=== PATIENT | male | born 1965 | race Caucasian/White ===

== ENCOUNTER → 2016-07-31 | Outpatient (CLI) | payer BC ==
[~2016-07-31] MED LIST: ASP81CT PO; CHL25T PO; CITA20TA4 PO; FLC1T PO; LEVE500T99 PO; OLAN2.5T19 PO; OSLT25B PO; PANTOPRAZOLE; PHN100C PO; PNT40TEC PO; SCR1T1 PO
--- OUTSIDE RECORDS SUMMARY | 2016-07-31 15:08 | XMS REPORT | Continuity of Care Document ---
Author Author [facility] Organization [facility] Address Unknown Phone Unavailable Care Team Providers Care News Technical Director Name Role Phone Gilberto Lu III PCP [phone] Source Comments Some departments are not documenting in the electronic medical record. If you do not see the information that you expected, contact Release of Information in the Health Information Management department at [phone] for further assistance in locating additional records.[facility] Active Allergies and Adverse Reactions Allergen Noted Date Severity Reactions Comments Thorazine 12/06/2012 HALLUCINATIONS Current Medications Prescription Sig. Disp. Refills Start End Date Status Date phenytoin SR (DILANTIN) Take 300 mg by mouth Active 100 mg capsule daily. Cholecalciferol (Vitamin Take by mouth. Active D3) (VITAMIN D-3) 1,000 unit Chew folic acid (FOLVITE) 1 mg Take 1 mg by mouth daily. Active tablet aspirin EC 81 mg tablet Take 81 mg by mouth Active daily. pantoprazole DR Take 40 mg by mouth Active (PROTONIX) 40 mg tablet daily. sucralfate (CARAFATE) 1 Take 1 g by mouth before Active gram tablet meals and at bedtime. cyanocobalamin (VITAMIN Take 1,000 mcg by mouth Active B-12) 1,000 mcg tablet daily. Levetiracetam (KEPPRA) Take 1,500 mg by mouth Active 1,000 mg tab twice daily. Active Problems Problem Noted Date Status post placement of implantable loop recorder 09/10/2014 Hypotension 11/17/2013 Syncope 01/22/2013 Overview: 03/05/2013 - ILR implant: Medtronic - Model Number: [id number] Hypoglycemia 12/06/2012 Epilepsy (HCC) 12/06/2012 Social History Tobacco Use Types Packs/Day Years Used Date Never Smoker Smokeless Tobacco: Never Used Alcohol Use Drinks/Week oz/Week Comments No Last Filed Vital Signs Vital Sign Reading Time Taken Blood Pressure 110/70 11/03/2014 10:43 AM CDT Pulse 50 11/03/2014 10:43 AM CDT Temperature 36.4 C (97.6 F) 03/05/2013 6:00 PM CDT Respiratory Rate 18 01/17/2013 1:50 PM CDT Height 1.753 m (5' 9.02") 11/03/2014 10:43 AM CDT Weight 72.122 kg (159 lb) 11/03/2014 10:43 AM CDT Body Mass Index 23.47 11/03/2014 10:43 AM CDT Oxygen Saturation 99% 03/05/2013 7:00 PM CDT Plan of Care Health Maintenance Due Date Last Done Comments Physical (Comprehensive) 1971 Exam Pertussis Vaccine 1975 Tetanus Vaccine 1981 Colorectal Cancer 2014 Screening Influenza Vaccine 01/13/2016 Results from Last 3 Months Not on file
--- NOTE | 2016-07-31 18:22 | Diagnostic Imaging Report ---
PROCEDURE: US Thyroid. TECHNIQUE: Multiple real-time grayscale images were obtained of the thyroid in various projections. INDICATION: Thyromegaly. Nodule. FINDINGS: The right thyroid lobe is 5.3 x 1.7 x 1.6 cm. The left lobe is 5.7 x 1.5 x 1.4 cm. In the inferior aspect of the left thyroid lobe, there is an isoechoic nodule measuring 1.6 x 1.5 x 0.8 cm. Another lesion in the mid left lobe measures 0.8 cm and is similar to the previous exam and there is new lesion measuring 0.5 cm in the upper left lobe. IMPRESSION: Enlarged thyroid gland. There are nodules in the left thyroid lobe, a dominant one measuring 1.6 cm in the inferior aspect of the left thyroid lobe, new from the prior exam. Ultrasound-guided biopsy or followup ultrasound exams recommended. Dictated by: Dictated on workstation # [id number]
== END ==
LOC: RAD 15:05
PROVIDERS: ATTEND Nurse Practitioner Family
DX: E04.1 Nontoxic single thyroid nodule (principal)
CPT/HCPCS: 76536

== ENCOUNTER 2017-09-17 05:32 | Outpatient (CLI) | payer BC ==
[~2017-09-17] VITALS: Ht 175.3 cm; Wt 66.0 kg
[2017-09-17] MEDS ORDERED: PANT40TA3 PO (11:57)
[2017-09-17] MEDS ORDERED: ASPI-999 PO (11:57)
[2017-09-17] MEDS ORDERED: SUCR1TAB PO (11:57)
[2017-09-17] MEDS ORDERED: LEVE100015 PO (11:57)
== END 2017-09-17 12:06 ==
LOC: PREOP 05:32
PROVIDERS: ATTEND Surgery
DX: Z01.818 Encounter for other preprocedural examination (principal); C44.320 Squamous cell carcinoma of skin of unspecified parts of face

== ENCOUNTER 2017-09-19 07:29 | Day surgery (SDC) | payer BC ==
[~2017-09-19] VITALS: Ht 175.3 cm; Wt 66.0 kg
[~2017-09-19 07:29] MED LIST changes: +ASPI-999 PO; +LEVE100015 PO; +PANT40TA3 PO; +SUCR1TAB PO
--- OUTSIDE RECORDS SUMMARY | 2017-09-19 07:32 | XMS REPORT | Clinical Summary ---
Author Author [facility] Organization [facility] Address Unknown Phone Unavailable Care Team Providers Care Bending Machine Set Up Operator Name Role Phone Ray Mckenna MD Unavailable Neva Schmitz MD Unavailable Antonio Lu MD PCP Source Comments Some departments are not documenting in the electronic medical record. If you do not see the information that you expected, contact Release of Information in the Health Information Management department at [phone] for further assistance in locating additional records.[facility] Allergies Active Allergy Reactions Severity Noted Date Comments Chlorpromazine HALLUCINATIONS 12/06/2012 Current Medications Prescription Sig. Disp. Refills Start [...] XT [id number] Hypoglycemia 12/06/2012 Epilepsy (HCC) 12/06/2012 Family History Medical History Relation Name Comments Diabetes Maternal Grandmother Heart Attack Mother Cancer Other uncle w/ testicular cancer Diabetes Other paternal uncle Relation Name Status Comments Maternal Grandmother Mother Other Social History Tobacco Use Types Packs/Day Years Used Date Never Smoker Smokeless Tobacco: Never Used Alcohol Use Drinks/Week oz/Week Comments No Sex Assigned at Date Recorded Not on file Last Filed Vital Signs Vital Sign Reading Time Taken Blood Pressure 110/70 11/03/2014 10:43 AM CDT Pulse 50 11/03/2014 10:43 AM CDT Temperature 36.4 C (97.6 F) 03/05/2013 6:00 PM CDT Respiratory Rate 18 01/17/2013 1:50 PM CDT Oxygen Saturation 99% 03/05/2013 7:00 PM CDT Inhaled Oxygen - - Concentration Weight 72.1 kg (159 lb) 11/03/2014 10:43 AM CDT Height 175.3 cm (5' 9.02") 11/03/2014 10:43 AM CDT Body Mass Index 23.47 11/03/2014 10:43 AM CDT Plan of Treatment Health Maintenance Due Date Last Done Comments HEPATITIS C SCREENING 1964 PHYSICAL (COMPREHENSIVE) 1971 EXAM PERTUSSIS VACCINE 1975 HIV SCREENING 1979 TETANUS VACCINE 1981 COLORECTAL CANCER 2014 SCREENING INFLUENZA VACCINE 02/11/2018 Results Not on filefrom Last 3 Months
--- OUTSIDE RECORDS SUMMARY | 2017-09-19 07:33 | XMS REPORT | Continuity of Care Document ---
Author Author [facility] Organization [facility] Address Unknown Phone Unavailable Allergies Active Description Code Type Severity Reaction Onset Reported/Identified Relationship to Patient Clinical Status Yes chlorpromazine HCl [id number] Drug Allergy Unknown N/A 12/18/2013 Medications There is no data. Problems Date Dx Coded Attending Type Code Diagnosis Diagnosed By 04/20/2014 FABIENNE HOUSE [employer]INTED CIRCUIT BOARD REWORKER Ot 790.29 10/27/2014 FABIENNE HOUSE PR[employer]ED CIRCUIT BOARD REWORKER Ot 240.9 04/19/2015 AMINA HOUSE DO Ot 789.00 04/19/2015 AMINA HOUSE DO Ot 793.4 04/19/2015 FABIENNE HOUSE [employer] BOARD REWORKER Ot 790.29 04/19/2015 FABIENNE HOUSE [employer] BOARD REWORKER Ot 240.9 05/05/2015 FABIENNE HOUSE [employer] CIRCUIT BOARD REWORKER Ot E01.0 05/18/2015 FABIENNE HOUSE [employer]ED CIRCUIT BOARD REWORKER Ot E04.1 06/24/2015 IMMANUEL LAMA [facility] Ot G40.89 06/24/2015 IMMANUEL LAMA [facility], ADOLFO FACP CCDS Ot R55 06/24/2015 IMMANUEL LAMA [facility], ALI FACP CCDS Ot G40.89 06/24/2015 IMMANUEL LAMA [facility], ALI FACP CCDS Ot R55 10/05/2015 FABIENNE HOUSE [employer] BOARD REWORKER Ot 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 NODULE 10/22/2015 FABIENNE HOUSE [employer] BOARD REWORKER Ot 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 NODULE 11/25/2015 DARIEN LAMA, TAMMIE Gentile Ot Z01.818 ENCOUNTER FOR OTHER PREPROCEDURAL EXAMIN 11/26/2015 TAMMIE LEDEZMA MD Ot Z01.818 ENCOUNTER FOR OTHER PREPROCEDURAL EXAMIN 11/29/2015 AMINA HOUSE DO Ot 789.00 ABDOMINAL PAIN, UNSPECIFIED SITE 11/29/2015 AMINA HOUSE DO Ot 793.4 NOSP (ABN) FINDINGS ON RADIOLOGICAL OT 11/29/2015 HOUSEFABIENNE LAMBERT PR[employer]ED [employer] BOARD REWORKER Ot 790.29 OTHER ABNORMAL GLUCOSE 11/29/2015 HOUSEFABIENNE LAMBERT [employer] BOARD REWORKER Ot 240.9 GOITER NOS 11/29/2015 HOUSEFABIENNE LAMBERT [employer] BOARD REWORKER Ot 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 RELATED DIFFUSE (ENDEM 11/29/2015 HOUSEFABIENNE LAMBERT PR[employer]ED [employer] BOARD REWORKER Ot 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 NODULE 11/29/2015 IMMANUEL LAMA [facility], ALI FACP CCDS Ot G40.89 OTHER SEIZURES 11/29/2015 IMMANUEL LAMA [facility], ALI FACP CCDS Ot R55 SYNCOPE AND COLLAPSE 11/29/2015 IMMANUEL LAMA [facility], ALI FACP CCDS Ot G40.89 OTHER SEIZURES 11/29/2015 IMMANUEL LAMA [facility], ALI FACP CCDS Ot R55 SYNCOPE AND COLLAPSE 11/29/2015 HOUSEFABIENNE LAMBERT Ivonne PRINTED CIRCUIT BOARD REWORKER Ot 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 NODULE 11/29/2015 DARIEN LAMA, TAMMIE Gentile Ot K29.70 GASTRITIS, UNSPECIFIED, WITHOUT BLEEDING 11/29/2015 DARIEN LAMA, TAMMIE Gentile Ot K64.4 RESIDUAL HEMORRHOIDAL SKIN TAGS 11/29/2015 DARIEN LAMA, ATMMIE Gentile Ot Z12.11 ENCOUNTER FOR SCREENING FOR MALIGNANT NE 11/30/2015 DARIEN LAMA, TAMMIE Gentile Ot K29.70 GASTRITIS, UNSPECIFIED, WITHOUT BLEEDING 11/30/2015 DARIEN LAMA, TAMMIE Gentile Ot K64.4 RESIDUAL HEMORRHOIDAL SKIN TAGS 11/30/2015 DARIEN LAMA, TAMMIE Gentile Ot Z12.11 ENCOUNTER FOR SCREENING FOR MALIGNANT NE 07/31/2016 AMINA HOUSE DO Ot 789.00 ABDOMINAL PAIN, UNSPECIFIED SITE 07/31/2016 AMINA HOUSE DO Ot 793.4 NOSP (ABN) FINDINGS ON RADIOLOGICAL OT 07/31/2016 HOUSEFABIENNE LAMBERT PR[employer]ED CIRCUIT BOARD REWORKER Ot 790.29 OTHER ABNORMAL GLUCOSE 07/31/2016 HOUSEFABIENNE LAMBERT PR[employer]ED CIRCUIT BOARD REWORKER Ot 240.9 GOITER NOS 07/31/2016 LACYFABIENNE Ivonne PRINTED CIRCUIT BOARD REWORKER Ot 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 RELATED DIFFUSE (ENDEM 07/31/2016 FABIENNE HOUSE PR[employer]ED CIRCUIT BOARD REWORKER Ot 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 NODULE 07/31/2016 IMMANUEL LAMA FACC, ADOLFO FACP CCDS Ot G40.89 OTHER SEIZURES 07/31/2016 IMMANUEL LAMA FACC, ALI FACP CCDS Ot R55 SYNCOPE AND COLLAPSE 07/31/2016 IMMANUEL LAMA FACC, ADOLFO FACP CCDS Ot G40.89 OTHER SEIZURES 07/31/2016 IMMANUEL LAMA FACC, ADOLFO FACP CCDS Ot R55 SYNCOPE AND COLLAPSE 07/31/2016 FABIENNE HOUSE L PRINTED CIRCUIT BOARD REWORKER Ot 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 NODULE 08/01/2016 BANG HOUSEIA L PRINTED CIRCUIT BOARD REWORKER Ot 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 NODULE 08/09/2016 BANG HOUSEIA L PRINTED CIRCUIT BOARD REWORKER Ot 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 NODULE 09/12/2017 LACY GARDNER, AMINA Macias Ot 789.00 ABDOMINAL PAIN, UNSPECIFIED SITE 09/12/2017 AMINA HOUSE DO Ot 793.4 NOSP (ABN) FINDINGS ON RADIOLOGICAL OT 09/12/2017 FABIENNE HOUSE L PR[employer]ED CIRCUIT BOARD REWORKER Ot 790.29 OTHER ABNORMAL GLUCOSE 09/12/2017 FABIENNE HOUSE L PRINTED CIRCUIT BOARD REWORKER Ot 240.9 GOITER NOS 09/12/2017 BANG HOUSEIA L PRINTED CIRCUIT BOARD REWORKER Ot 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 RELATED DIFFUSE (ENDEM 09/12/2017 BANG HOUSEIA L PRINTED CIRCUIT BOARD REWORKER Ot 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 NODULE 09/12/2017 IMMANUEL LAMA FACC, ADOLFO FACP CCDS Ot G40.89 OTHER SEIZURES 09/12/2017 IMMANUEL LAMA FACC, ADOLFO FACP CCDS Ot R55 SYNCOPE AND COLLAPSE 09/12/2017 IMMANUEL LAMA FACC, ADOLFO FACP CCDS Ot G40.89 OTHER SEIZURES 09/12/2017 IMMANUEL LAMA FACC, ADOLFO FACP CCDS Ot R55 SYNCOPE AND COLLAPSE 09/12/2017 BANG HOUSEIA L PRINTED CIRCUIT BOARD REWORKER Ot 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 NODULE 09/12/2017 PATY HOUSERICIA L PRINTED CIRCUIT BOARD REWORKER Ot 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 NODULE 09/12/2017 AMINA HOUSE DO Ot 789.00 ABDOMINAL PAIN, UNSPECIFIED SITE 09/12/2017 LACY AMINA GARDNER Ot 793.4 NOSP (ABN) FINDINGS ON RADIOLOGICAL OT 09/12/2017 FABIENNE HOUSE PR[employer]ED CIRCUIT BOARD REWORKER Ot 790.29 OTHER ABNORMAL GLUCOSE 09/12/2017 FABIENNE HOUSE PR[employer]ED CIRCUIT BOARD REWORKER Ot 240.9 GOITER NOS 09/12/2017 FABIENNE HOUSE PRINTED CIRCUIT BOARD REWORKER Ot 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 RELATED DIFFUSE (ENDEM 09/12/2017 FABIENNE HOUSE PR[employer]ED CIRCUIT BOARD REWORKER Ot 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 NODULE 09/12/2017 IMMANUEL LAMA [facility], ALI FACP CCDS Ot G40.89 OTHER SEIZURES 09/12/2017 IMMANUEL ARGUETA, ALI FACP CCDS Ot R55 SYNCOPE AND COLLAPSE 09/12/2017 IMMANUEL LAMA FACC, ALI FACP CCDS Ot G40.89 OTHER SEIZURES 09/12/2017 IMMANUEL LAMA FACC, ALI FACP CCDS Ot R55 SYNCOPE AND COLLAPSE 09/12/2017 FABIENNE HOUSE [employer]ED CIRCUIT BOARD REWORKER Ot 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 NODULE 09/12/2017 FABIENNE HOUSE PRINTED CIRCUIT BOARD REWORKER Ot 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 NODULE Procedures There is no data. Results There is no data. Encounters ACCT No. Visit Date/Time Discharge Status Pt. Type Provider Facility Loc./Unit Complaint [id number] 07/31/2016 15:05:00 07/31/2016 23:59:59 CLS Outpatient FABIENNE HOUSEP [facility] RAD THYROMEGALY/ NODULE [id number] 11/29/2015 13:35:00 11/29/2015 16:35:00 DIS Outpatient TAMMIE LEDEZMA MD [facility] SDC SCREENING [id number] 11/25/2015 05:49:00 11/25/2015 13:31:00 DIS Outpatient TAMMIE LEDEZMA MD [facility] PREOP SCREENING [id number] 10/04/2015 10:09:00 10/04/2015 23:59:59 CLS Outpatient FABIENNE HOUSEP [facility] RAD THRYOID NODULE [id number] 06/08/2015 07:17:00 06/08/2015 23:59:59 CLS Outpatient IMMANUEL LAMA FACCaron, ADOLFO FACP CCDS [facility] CARD SYNCOPE [id number] 06/07/2015 14:37:00 06/07/2015 23:59:59 CLS Outpatient IMMANUEL LAMA FACC, ADOLFO HERNANDEZ CCDS [facility] CARD SYNCOPE, SEIZURE [id number] 05/04/2015 11:16:00 05/04/2015 23:59:59 CLS Outpatient FABIENNE HOUSE PRINTED CIRCUIT BOARD REWORKER [facility] CARD NODULE LEFT LOBE [id number] 04/19/2015 14:00:00 04/19/2015 23:59:59 CLS Outpatient FABIENNE HOUSE PRINTED CIRCUIT BOARD REWORKER [facility] RAD THYROMEGALY [id number] 09/29/2014 09:19:00 09/29/2014 23:59:59 CLS Outpatient FABIENNE HOUSE [employer]ED [employer] BOARD REWORKER [facility] RAD THYROMEGALY [id number] 03/25/2014 07:27:00 03/25/2014 23:59:59 CLS Outpatient FABIENNE HOUSE PR[employer]ED [employer] BOARD REWORKER [facility] LAB LABILE BLODD GLUCOSE,MED RISK [id number] 12/18/2013 09:22:00 12/18/2013 23:59:59 CLS Outpatient AMINA HOUSE DO [facility] RAD ABDOMINAL PAIN [id number] 09/11/2012 15:43:00 09/11/2012 17:20:00 DIS Emergency [id number] 09/19/2017 09:00:00 PEN Roseanna LEDEZMA MD, TAMMIE Gentile [facility] SDC SQUAMOUS CELL CARCINOMA
[2017-09-19 07:38] VITALS: BP 109/50
--- NOTE | 2017-09-19 07:40 | Progress Note-Pre Operative ---
Pre-Operative Progress Note H&P Reviewed The H&P was reviewed, patient examined and no changes noted. 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
[2017-09-19] MEDS ORDERED: LACTATED RINGERS 1,000 ML IV PRN (07:48)
[2017-09-19] MEDS ORDERED: ceFAZolin INJECTION 1,000 MG in NS (IVPB) 100 ML IV ONE (08:00)
[2017-09-19] MEDS ORDERED: fentaNYL INJECTION 100 MCG/2 ML AMP ONE (09:03)
[2017-09-19] MEDS ORDERED: MIDAZOLAM 2 MG/2 ML (VERSED) VIAL ONE (09:03)
[2017-09-19] MEDS ORDERED: BUP/EPI 0.5% 1:200,000 (SENSORCAINE) 30 ML VIAL ONE (09:16)
[2017-09-19] MEDS ORDERED: LIDOCAINE PF 2% 5 ML (XYLOCAINE) VIAL ONE (10:13)
[2017-09-19] MEDS ORDERED: ONDANSETRON 4 MG/2 ML (SDV) Z0FRAN ONE (10:13)
[2017-09-19] MEDS ORDERED: DEXAMETHASONE 10 MG/ML (DECADRON) 1 ML VIAL ONE (10:13)
[2017-09-19] MEDS ORDERED: proPOfol 200 MG/20 ML (DIPRIVAN) VIAL IV ONE (10:13)
[2017-09-19] MEDS ORDERED: SEVOFLURANE (ULTANE) 15 ML INHAL SOLN ONE (10:13)
[2017-09-19] MEDS ORDERED: TRAM50TA2 PO (10:36)
--- NOTE | 2017-09-19 10:37 | Discharge Inst-Simple/Standard ---
Discharge Inst-Standard Discharge Medications New, Converted or Re-Newed RX: RX on Chart Patient Instructions/Follow Up Plan of Care/Instructions/FU: Dressing off in 48 hours. F/U with my nurse in 10 days for suture removal Activity as Tolerated: Yes Discharge Diet: No Restrictions TAMMIE LEDEZMA MD September 19, 2017 10:37 am
[2017-09-19] MEDS ORDERED: ONDANSETRON 4 MG/2 ML (SDV) Z0FRAN IVP PRN (11:15)
[2017-09-19] MEDS ORDERED: morphine INJ 10 MG/ML 1ML (SYR OR VIAL) IVP PRN (11:15)
[2017-09-19 12:00] VITALS: BP 111/63
--- NOTE | 2017-09-19 12:12 | Operative Report ---
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 Therefore, he came in for formal excision with negative margins, confirmed by frozen section analysis. Informed consent was obtained after reviewing the procedure in detail Description of procedure: He was placed supine on the operative table and general anesthesia induced using a laryngeal mask airway. A gram of Ancef was administered intravenously as prophylaxis against wound infection. Right episcopalian was prepared and draped in the usual sterile manner. Pre-emptive analgesia was established using 0.5 percent Marcaine with epinephrine. An elliptical incision 8 cm long by 4 centimeters in width was made and the lesion excised down to the subcutaneous tissue. It was oriented with silk sutures and sent for frozen section analysis. The pathologist confirmed squamous cell carcinoma in situ without any invasion and negative margins. Hemostasis was achieved using ligaclips and cautery. The skin edges were then approximated using interrupted 6-0 nylon sutures. Steri-Strips and a nonadherent dressing were applied. He tolerated the procedure well and was taken back to the nursing area in a stable condition, after being extubated in the operating room. Findings of the Procedure see op report Allergies and Home Medications Allergies Coded Allergies: chlorpromazine HCl (Verified Allergy, Mild, HALLUCINATIONS, 09/17/17) Home Medications Aspirin 81 Mg Tab.chew, 81 MG PO DAILY, (Reported) Levetiracetam 1,000 Mg Tablet, 4,000 MG PO DAILY, (Reported) Pantoprazole Sodium 40 Mg Tablet.dr, 40 MG PO DAILY, (Reported) Sucralfate 1 Gm Tablet, 1 GM PO DAILY, (Reported) Tramadol HCl 50 Mg Tablet, 50 MG PO Q12H Prescribed by: TAMMIE LEDEZMA on 09/19/17 1036 Patient Home Medication List Home Medication List Reviewed: Yes TAMMIE LEDEZMA MD September 19, 2017 12:12 pm
[2017-09-19 12:30] VITALS: BP 100/60
--- NOTE | 2017-09-19 12:48 | Anesthesia-General Post-Op ---
General Patient Condition Mental Status/LOC: Same as Preop Cardiovascular: Satisfactory Nausea/Vomiting: Absent Respiratory: Satisfactory Pain: Controlled Complications: Absent Post Op Complications Complications None Follow Up Care/Instructions Patient Instructions None needed. Anesthesia/Patient Condition Patient Condition Patient is doing well, no complaints, stable vital signs, no apparent adverse anesthesia problems. No complications reported per nursing. SUZY BUTLER CRNA September 19, 2017 12:48
[2017-09-19 12:55] VITALS: BP 105/62
== END 2017-09-19 12:55 | disposition home or self-care (01) ==
LOC: SDC 07:29
PROVIDERS: ATTEND Surgery
DX: C44.329 Squamous cell carcinoma of skin of other parts of face (principal); Z11.2 Encounter for screening for other bacterial diseases; Z79.82 Long term (current) use of aspirin; Z79.899 Other long term (current) drug therapy
CPT/HCPCS: 87081; 88305; 88331; 88332

== ENCOUNTER 2017-10-27 20:06 | Emergency (ER) | payer BC ==
[~2017-10-27] VITALS: Ht 175.3 cm; Wt 68.0 kg
[~2017-10-27 20:06] MED LIST changes: +TRAM50TA2 PO
--- OUTSIDE RECORDS SUMMARY | 2017-10-27 20:11 | XMS REPORT | Clinical Summary ---
Author Author [facility] Organization [facility] Address Unknown Phone Unavailable Care Team Providers Care Licensed Guide Name Role Phone Ray Mckenna MD Unavailable Neva Schmitz MD Unavailable Antonio Lu MD PCP Source Comments Some departments are not documenting in the electronic medical record. If you do not see the information that you expected, contact Release of Information in the Health Information Management department at [phone] for further assistance in locating additional records.[facility] Allergies Active Allergy Reactions Severity Noted Date [...]
--- OUTSIDE RECORDS SUMMARY | 2017-10-27 20:11 | XMS REPORT | Continuity of Care Document ---
Author Author [facility] Organization [facility] Address Unknown Phone Unavailable Allergies Active Description Code Type Severity Reaction Onset Reported/Identified Relationship to Patient Clinical Status Yes chlorpromazine HCl [id number] Drug Allergy Unknown N/A 12/18/2013 Yes chlorpromazine HCl [id number] Drug Allergy Mild HALLUCINATIONS 2017 Medications There is no data. Problems Date Dx Coded Attending Type Code Diagnosis Diagnosed By 04/20/2014 FABIENNE HOUSE MOTOR INSPECTION MECHANIC Ot 790.29 10/27/2014 FABIENNE HOUSE MOTOR INSPECTION MECHANIC Ot 240.9 04/19/2015 AMINA HOUSE DO Ot 789.00 04/19/2015 AMINA HOUSE DO Ot 793.4 04/19/2015 FABIENNE HOUSE MOTOR INSPECTION MECHANIC Ot 790.29 04/19/2015 FABIENNE HOUSE MOTOR INSPECTION MECHANIC Ot 240.9 05/05/2015 FABIENNE HOUSE MOTOR INSPECTION MECHANIC Ot E01.0 05/18/2015 FABIENNE HOUSE MOTOR INSPECTION MECHANIC Ot E04.1 06/24/2015 IMMANUEL LAMA [facility] Ot G40.89 06/24/2015 IMMANUEL LAMA [facility] CCDS Ot R55 06/24/2015 IMMANUEL LAMA [facility] FACP CCDS Ot G40.89 06/24/2015 IMMANUEL LAMA [facility] CCDS Ot R55 10/05/2015 FABIENNE HOUSE MOTOR INSPECTION MECHANIC Ot 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 NODULE 10/22/2015 FABIENNE HOUSE MOTOR INSPECTION MECHANIC Ot 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 NODULE 11/25/2015 DARIEN LAMA, TAMMIE Gentile Ot Z01.818 ENCOUNTER FOR OTHER PREPROCEDURAL EXAMIN 11/26/2015 TAMMIE LEDEZMA MD Ot Z01.818 ENCOUNTER FOR OTHER PREPROCEDURAL EXAMIN 11/29/2015 AMINA HOUSE DO Ot 789.00 ABDOMINAL PAIN, UNSPECIFIED SITE 11/29/2015 AMINA HOUSE DO Ot 793.4 NOSP (ABN) FINDINGS ON RADIOLOGICAL OT 11/29/2015 HOUSEFABIENNE LAMBERT MOTOR INSPECTION MECHANIC Ot 790.29 OTHER ABNORMAL GLUCOSE 11/29/2015 LACYFABIENNE MOTOR INSPECTION MECHANIC Ot 240.9 GOITER NOS 11/29/2015 LACYFABIENNE Ivonne MOTOR INSPECTION MECHANIC Ot 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 RELATED DIFFUSE (ENDEM 11/29/2015 LACYFABIENNE MOTOR INSPECTION MECHANIC Ot 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 NODULE 11/29/2015 IMMANUEL LAMA [facility] CCDS Ot G40.89 OTHER SEIZURES 11/29/2015 IMMANUEL LAMA [facility] FACP CCDS Ot R55 SYNCOPE AND COLLAPSE 11/29/2015 IMMANUEL LAMA [facility], [facility] FACP CCDS Ot G40.89 OTHER SEIZURES 11/29/2015 IMMANUEL LAMA [facility], [facility] FACP CCDS Ot R55 SYNCOPE AND COLLAPSE 11/29/2015 LACYFABIENNE MOTOR INSPECTION MECHANIC Ot 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 NODULE 11/29/2015 DARIEN LAMA, TAMMIE Gentile Ot K29.70 GASTRITIS, UNSPECIFIED, WITHOUT BLEEDING 11/29/2015 DARIEN LAMA, TAMMIE Gentile Ot K64.4 RESIDUAL HEMORRHOIDAL SKIN TAGS 11/29/2015 DARIEN LAMA, TAMMIE Gentile Ot Z12.11 ENCOUNTER FOR SCREENING FOR MALIGNANT NE 11/30/2015 TAMMIE LEDEZMA MD Ot K29.70 GASTRITIS, UNSPECIFIED, WITHOUT BLEEDING 11/30/2015 DARIEN LAMA, TAMMIE Gnetile Ot K64.4 RESIDUAL HEMORRHOIDAL SKIN TAGS 11/30/2015 DARIEN LAMA, TAMMIE Gentile Ot Z12.11 ENCOUNTER FOR SCREENING FOR MALIGNANT NE 07/31/2016 AMINA HOUSE DO Ot 789.00 ABDOMINAL PAIN, UNSPECIFIED SITE 07/31/2016 AMINA HOUSE DO Ot 793.4 NOSP (ABN) FINDINGS ON RADIOLOGICAL OT 07/31/2016 LACYBANGIA Ivonne MOTOR INSPECTION MECHANIC Ot 790.29 OTHER ABNORMAL GLUCOSE 07/31/2016 LACY FABIENNE Coronado MOTOR INSPECTION MECHANIC Ot 240.9 GOITER NOS 07/31/2016 FABIENNE HOUSE MOTOR INSPECTION MECHANIC Ot 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 RELATED DIFFUSE (ENDEM 07/31/2016 FABIENNE HOUSE MOTOR INSPECTION MECHANIC Ot 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 NODULE 07/31/2016 IMMANUEL LAMA FACC, [facility] FACP CCDS Ot G40.89 OTHER SEIZURES 07/31/2016 IMMANUEL LAMA FACC, [facility] FACP CCDS Ot R55 SYNCOPE AND COLLAPSE 07/31/2016 IMMANUEL LAMA FACC, [facility] FACP CCDS Ot G40.89 OTHER SEIZURES 07/31/2016 IMMANUEL LAMA FACC, [facility] FACP CCDS Ot R55 SYNCOPE AND COLLAPSE 07/31/2016 FABIENNE HOUSE MOTOR INSPECTION MECHANIC Ot 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 NODULE 08/01/2016 FABIENNE HOUSE MOTOR INSPECTION MECHANIC Ot 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 NODULE 08/09/2016 FABIENNE HOUSE MOTOR INSPECTION MECHANIC Ot 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 NODULE 09/12/2017 LACY GARDNER AMINA Gilberto Ot 789.00 ABDOMINAL PAIN, UNSPECIFIED SITE 09/12/2017 LACY GARDNER [facility] Ot 793.4 NOSP (ABN) FINDINGS ON RADIOLOGICAL OT 09/12/2017 FABIENNE HOUSE MOTOR INSPECTION MECHANIC Ot 790.29 OTHER ABNORMAL GLUCOSE 09/12/2017 FABIENNE HOUSE MOTOR INSPECTION MECHANIC Ot 240.9 GOITER NOS 09/12/2017 FABIENNE HOUSE MOTOR INSPECTION MECHANIC Ot 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 RELATED DIFFUSE (ENDEM 09/12/2017 FABIENNE HOUSE MOTOR INSPECTION MECHANIC Ot 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 NODULE 09/12/2017 IMMANUEL LAMA FACC, [facility] ARGUETAP CCDS Ot G40.89 OTHER SEIZURES 09/12/2017 IMMANUEL LAMA FACC, [facility] FACP CCDS Ot R55 SYNCOPE AND COLLAPSE 09/12/2017 ADOLFO GAMBINO MD, FACC FACP CCDS Ot G40.89 OTHER SEIZURES 09/12/2017 IMMANUEL LAMA FACC, [facility] FACP CCDS Ot R55 SYNCOPE AND COLLAPSE 09/12/2017 FABIENNE HOUSE MOTOR INSPECTION MECHANIC Ot 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 NODULE 09/12/2017 FABIENNE HOUSE MOTOR INSPECTION MECHANIC Ot 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 NODULE 09/12/2017 AMINA HOUSE DO Ot 789.00 ABDOMINAL PAIN, UNSPECIFIED SITE 09/12/2017 AMINA HOUSE DO Ot 793.4 NOSP (ABN) FINDINGS ON RADIOLOGICAL OT 09/12/2017 LACYBANGIA L MOTOR INSPECTION MECHANIC Ot 790.29 OTHER ABNORMAL GLUCOSE 09/12/2017 LACYPATYFABIENNE L MOTOR INSPECTION MECHANIC Ot 240.9 GOITER NOS 09/12/2017 HOUSEPATYFABIENNE L MOTOR INSPECTION MECHANIC Ot 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 RELATED DIFFUSE (ENDEM 09/12/2017 LACYPATYFABIENNE L MOTOR INSPECTION MECHANIC Ot 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 NODULE 09/12/2017 IMMANUEL ARGUETAC, ALI FACP CCDS Ot G40.89 OTHER SEIZURES 09/12/2017 IMMANUEL ARGUETAC, ALI FACP CCDS Ot R55 SYNCOPE AND COLLAPSE 09/12/2017 IMMANUEL LAMA FACC, ALI FACP CCDS Ot G40.89 OTHER SEIZURES 09/12/2017 IMMANUEL LAMA FACC, ALI FACP CCDS Ot R55 SYNCOPE AND COLLAPSE 09/12/2017 LACY FABIENNE L MOTOR INSPECTION MECHANIC Ot 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 NODULE 09/12/2017 PATY HOUSERICIA L MOTOR INSPECTION MECHANIC Ot 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 NODULE 09/17/2017 DARIEN LAMA, TAMMIE Gentile Ot C44.320 SQUAMOUS CELL CARCINOMA OF SKIN OF UNSPE 09/17/2017 DARIEN LAMA, TAMMIE Gentile Ot Z01.818 ENCOUNTER FOR OTHER PREPROCEDURAL EXAMIN 09/17/2017 AMINA HOUSE DO Ot 789.00 ABDOMINAL PAIN, UNSPECIFIED SITE 09/17/2017 AMINA HOUSE DO Ot 793.4 NOSP (ABN) FINDINGS ON RADIOLOGICAL OT 09/17/2017 BANG HOUSEIA L MOTOR INSPECTION MECHANIC Ot 790.29 OTHER ABNORMAL GLUCOSE 09/17/2017 PATY HOUSERICIA L MOTOR INSPECTION MECHANIC Ot 240.9 GOITER NOS 09/17/2017 LACYPATYFABIENNE L MOTOR INSPECTION MECHANIC Ot 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 RELATED DIFFUSE (ENDEM 09/17/2017 LACY FABIENNE L MOTOR INSPECTION MECHANIC Ot 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 NODULE 09/17/2017 IMMANUEL LAMA FACC, ALI FACP CCDS Ot G40.89 OTHER SEIZURES 09/17/2017 IMMANUEL LAMA [facility] CCDS Ot R55 SYNCOPE AND COLLAPSE 09/17/2017 I[facility]EL L[facility] Ot G40.89 OTHER SEIZURES 09/17/2017 IMMANUEL LAMA [facility], [facility]I FACP CCDS Ot R55 SYNCOPE AND COLLAPSE 09/17/2017 FABIENNE HOUSE MOTOR INSPECTION MECHANIC Ot 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 NODULE 09/17/2017 FABIENNE HOUSE MOTOR INSPECTION MECHANIC Ot 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 NODULE 09/19/2017 TAMMIE LEDEZMA MD Ot C44.329 SQUAMOUS CELL CARCINOMA OF SKIN OF OTHER 09/19/2017 TAMMIE LEDEZMA MD Ot Z11.2 ENCOUNTER FOR SCREENING FOR OTHER BACTER 09/19/2017 TAMMIE LEDEZMA MD Ot Z79.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 09/19/2017 TAMMIE LEDEZMA MD Ot Z79.899 OTHER INTERMEDIATE (CURRENT) DRUG THERAPY 09/21/2017 TAMMIE LEDEZMA MD Ot C44.329 SQUAMOUS CELL CARCINOMA OF SKIN OF OTHER 09/21/2017 TAMMIE LEDEZMA MD Ot Z11.2 ENCOUNTER FOR SCREENING FOR OTHER BACTER 09/21/2017 TAMMIE LEDEZMA MD Ot Z79.82 INTERMEDIATE (CURRENT) USE OF ASPIRIN 09/21/2017 TAMMIE LEDEZMA MD Ot Z79.899 OTHER SOLUTIONS SALES CONSULTANT (CURRENT) DRUG THERAPY 09/21/2017 TAMMIE LEDEZMA MD Ot C44.329 SQUAMOUS CELL CARCINOMA OF SKIN OF OTHER 09/21/2017 TAMMIE LEDEZMA MD Ot Z11.2 ENCOUNTER FOR SCREENING FOR OTHER BACTER 09/21/2017 TAMMIE LEDEZMA MD Ot Z79.82 INTERMEDIATE (CURRENT) USE OF ASPIRIN 09/21/2017 TAMMIE LEDEZMA MD Ot Z79.899 OTHER SOLUTIONS SALES CONSULTANT (CURRENT) DRUG THERAPY Procedures There is no data. Results Test Result Range Methicillin resistant Staphylococcus aureus (MRSA) screening culture - 08:00 Methicillin resistant Staphylococcus aureus (MRSA) screening culture NEG NRG Encounters ACCT No. Visit Date/Time Discharge Status Pt. Type Provider Facility Loc./Unit Complaint [id number] 09/19/2017 07:29:00 09/19/2017 12:55:00 DIS Outpatient TAMMIE LEDEZMA MD [facility] SQUAMOUS CELL CARCINOMA [id number] 09/17/2017 05:32:00 09/17/2017 12:06:00 DIS Outpatient TAMMIE LEDEZMA MD [facility] PREOP EXC, SCCA RT HOAHAOISM W/FS [id number] 07/31/2016 15:05:00 07/31/2016 23:59:59 CLS Outpatient FABIENNE HOUSE MOTOR INSPECTION MECHANIC [facility] RAD THYROMEGALY/ NODULE [id number] 11/29/2015 13:35:00 11/29/2015 16:35:00 DIS Outpatient TAMMIE LEDEZMA MD [facility] SCREENING [id number] 11/25/2015 05:49:00 11/25/2015 13:31:00 DIS Outpatient TAMMIE LEDEZMA MD [facility] PREOP SCREENING [id number] 10/04/2015 10:09:00 10/04/2015 23:59:59 CLS Outpatient FABIENNE HOUSE MOTOR INSPECTION MECHANIC [facility] RAD THRYOID NODULE [id number] 06/08/2015 07:17:00 06/08/2015 23:59:59 CLS Outpatient ADOLFO GAMBINO MD, FACC, FACP CCDS [facility] CARD SYNCOPE [id number] 06/07/2015 14:37:00 06/07/2015 23:59:59 CLS Outpatient ADOLFO GAMBINO MD, FACC, FACP CCDS [facility] CARD SYNCOPE, SEIZURE [id number] 05/04/2015 11:16:00 05/04/2015 23:59:59 CLS Outpatient FABIENNE HOUSE MOTOR INSPECTION MECHANIC [facility] CARD NODULE LEFT LOBE [id number] 04/19/2015 14:00:00 04/19/2015 23:59:59 CLS Outpatient FABIENNE HOUSE MOTOR INSPECTION MECHANIC [facility] RAD THYROMEGALY [id number] 09/29/2014 09:19:00 09/29/2014 23:59:59 CLS Outpatient FABIENNE HOUSE [facility] RAD THYROMEGALY [id number] 03/25/2014 07:27:00 03/25/2014 23:59:59 CLS Outpatient FABIENNE HOUSE [facility] LAB LABILE BLODD GLUCOSE,MED RISK [id number] 12/18/2013 09:22:00 12/18/2013 23:59:59 CLS Outpatient AMINA HOUSE DO [facility] RAD ABDOMINAL PAIN [id number] 09/11/2012 15:43:00 09/11/2012 17:20:00 DIS Emergency
--- NOTE | 2017-10-27 20:16 | ED Syncope ---
General Chief Complaint: Dizziness/Syncope Stated Complaint: L SIDE RIB PAIN Nursing Triage Note: PT PRESENST TO ER BY EMS WITH COMPLAINT OF LEFT SIDE RIB PAIN AFTER PASSING OUT WHILE BRUSHING TEETH. Source of Information: Patient Exam Limitations: No Limitations History of Present Illness Date Seen by Provider: Oct 27, 2017 Time Seen by Provider: 20:13 Initial Comments To ER per EMS from home with reports of a syncopal event. This occurred about 6 PM when he was brushing his teeth. He states that he felt fine, was brushing his teeth, he believes that he was gagging on toothpaste in his throat when he collapsed to the floor and was unconscious for about 5 minutes. He awakened with some left anterior lower chest wall pain tender to palpation and believes that he struck this area on the floor.he does have a seizure disorder and he takes Keppra. Timing/Prior Episodes: No Prior History Precipitating Factors: None Loss of Consciousness: No Loss of Consciousness Allergies and Home Medications Allergies Coded Allergies: chlorpromazine HCl (Verified Allergy, Mild, HALLUCINATIONS, 09/17/17) Home Medications Aspirin 81 Mg Tab.chew, 81 MG PO DAILY, (Reported) Levetiracetam 1,000 Mg Tablet, 4,000 MG PO DAILY, (Reported) Pantoprazole Sodium 40 Mg Tablet.dr, 40 MG PO DAILY, (Reported) Sucralfate 1 Gm Tablet, 1 GM PO DAILY, (Reported) Patient Home Medication List Home Medication List Reviewed: Yes Constitutional: see HPI EENTM: see HPI Respiratory: no symptoms reported Cardiovascular: no symptoms reported Musculoskeletal: no symptoms reported Skin: no symptoms reported Psychiatric/Neurological: No Symptoms Reported Past Frhxsqh-Wblknb-Flwvlg Hx Patient Social History Recent Foreign Travel: No Contact w/Someone Who Travel: No Recent Infectious Disease Expo: No Recent Hopitalizations: No Immunizations Up To Date Date of Pneumonia Vaccine: Apr 17, 2012 Date of Influenza Vaccine: Aug 11, 2011 Seasonal Allergies Seasonal Allergies: No Past Medical History Seizure Disorder Reproductive Disorders: No Sexually Transmitted Disease: No HIV/AIDS: No Gastroesophageal Reflux, Ulcer Loss of Vision: Denies Hearing Impairment: Denies Adverse Reaction/Blood Tranf: No Physical Exam Vital Signs Vital Signs - First Documented 10/27/17 20:06 Temp 96.9 Pulse 54 Resp 20 B/P (MAP) 133/67 (89) Pulse Ox 97 O2 Delivery Room Air Capillary Refill : Less Than 3 Seconds General Appearance: No Apparent Distress, WD/WN, Other (GCS is 15 he is alert oriented and pleasant.) HEENT: PERRL/EOMI, TMs Normal, Other (no sign of head or facial trauma. No scalp hematoma or laceration.) Neck: Full Range of Motion, Normal Inspection Cardiovascular: Normal Peripheral Pulses, Bradycardia (50s) Respiratory: No Accessory Muscle Use, No Respiratory Distress Gastrointestinal: Normal Bowel Sounds, Non Tender, Soft Neurologic/Psychiatric: Alert, Oriented x3 Cranial Nerves: Normal Hearing, Normal Speech Skin: Normal Color, Warm/Dry Comments at the cartilaginous junctionetween the ribs and sternum at about the sixth or seventh rib anteriorly there is exquisite tenderness to palpation and inability to take a deep breath due to the pain here. Progress/Results/Core Measures Results/Orders Lab Results Laboratory Tests Test 10/27/17 20:09 Range/Units White Blood Count 6.5 4.3-11.0 10^3/uL Red Blood Count 4.94 4.35-5.85 10^6/uL Hemoglobin 15.8 13.3-17.7 G/DL Hematocrit 45 40-54 % Mean Corpuscular Volume 91 80-99 FL Mean Corpuscular Hemoglobin 32 25-34 PG Mean Corpuscular Hemoglobin Concent 35 32-36 G/DL Red Cell Distribution Width 14.3 10.0-14.5 % Platelet Count 131 130-400 10^3/uL Mean Platelet Volume 12.7 H 7.4-10.4 FL Neutrophils (%) (Auto) 59 42-75 % Lymphocytes (%) (Auto) 31 12-44 % Monocytes (%) (Auto) 8 0-12 % Eosinophils (%) (Auto) 2 0-10 % Basophils (%) (Auto) 1 0-10 % Neutrophils # (Auto) 3.8 1.8-7.8 X 10^3 Lymphocytes # (Auto) 2.0 1.0-4.0 X 10^3 Monocytes # (Auto) 0.5 0.0-1.0 X 10^3 Eosinophils # (Auto) 0.1 0.0-0.3 10^3/uL Basophils # (Auto) 0.1 0.0-0.1 10^3/uL Sodium Level 140 135-145 MMOL/L Potassium Level 4.1 3.6-5.0 MMOL/L Chloride Level 104 98-107 MMOL/L Carbon Dioxide Level 23 21-32 MMOL/L Anion Gap 13 5-14 MMOL/L Blood Urea Nitrogen 22 H 7-18 MG/DL Creatinine 0.92 0.60-1.30 MG/DL Estimat Glomerular Filtration Rate > 60 BUN/Creatinine Ratio 24 Glucose Level 110 H 70-105 MG/DL Calcium Level 9.7 8.5-10.1 MG/DL Total Bilirubin 0.3 0.1-1.0 MG/DL Aspartate Amino Transf (AST/SGOT) 24 5-34 U/L Alanine Aminotransferase (ALT/SGPT) 36 0-55 U/L Alkaline Phosphatase 66 40-136 U/L Troponin I < 0.30 <0.30 NG/ML Total Protein 7.4 6.4-8.2 GM/DL Albumin 4.5 3.2-4.5 GM/DL My Orders Orders - HIMA TORIBIO APRN Ct Head Wo (10/27/17 20:11) Ekg Tracing (10/27/17 20:11) Cbc With Automated Diff (10/27/17 20:11) Comprehensive Metabolic Panel (10/27/17 20:11) Chest Pa/Lat (2 View) (10/27/17 20:11) Troponin I (10/27/17 20:16) Vital Signs/I&O 10/27/17 20:06 Temp 96.9 Pulse 54 Resp 20 B/P (MAP) 133/67 (89) Pulse Ox 97 O2 Delivery Room Air Blood Pressure Mean: 89 Departure Communication (Admissions) 2103- denies headache or weakness. Heart rate remains 55 sinus, blood pressure 130 systolic, oxygen 99% on room air. Denies any abdominal pain specifically, no left upper quadrant abdominal pain.tthere is no ecchymosis abrasion or erythema to the abdomen to concern me for solid organ injury. And he has tenderness to palpation is superior to the location of the spleen. Impression Primary Impression: Syncope and collapse Additional Impression: Rib pain on left side Disposition: 01 HOME, SELF-CARE Condition: Stable Departure-Patient Inst. Decision time for Depature: 20:54 Referrals: AMINA HOUSE DO (PCP/Family) Primary Care Physician Patient Instructions: Syncope (Fainting) (DC) Add. Discharge Instructions: 1. Return to ER for any concerns 2. Follow-up with your doctor on Sunday 3.All discharge instructions reviewed with patient and/or family. Voiced understanding. Images Torso/Trunk 1 - Tenderness Copy Copies To 1: AMINA HOUSE PETER J APRN Oct 27, 2017 20:16
[2017-10-27 20:20] LABS: BASOPHILS # (AUTO) 0.1 10^3/uL (0.0-0.1); BASOPHILS % (AUTO) 1 % (0-10); EOSINOPHILS # (AUTO) 0.1 10^3/uL (0.0-0.3); EOSINOPHILS % (AUTO) 2 % (0-10); HEMATOCRIT 45 % (40-54); HEMOGLOBIN 15.8 G/DL (13.3-17.7); LYMPHOCYTES % (AUTO) 31 % (12-44); MEAN CORPUSCULAR HEMOGLOBIN 32 PG (25-34); MEAN CORPUSCULAR HGB CONC 35 G/DL (32-36); MEAN CORPUSCULAR VOLUME 91 FL (80-99); MEAN PLATELET VOLUME 12.7 FL (7.4-10.4); MONOCYTES # (AUTO) 0.5 X 10^3 (0.0-1.0); MONOCYTES % (AUTO) 8 % (0-12); NEUTROPHILS # (AUTO) 3.8 X 10^3 (1.8-7.8); NEUTROPHILS % (AUTO) 59 % (42-75); PLATELET COUNT 131 10^3/uL (130-400); RED BLOOD COUNT 4.94 10^6/uL (4.35-5.85); RED CELL DISTRIBUTION WIDTH 14.3 % (10.0-14.5); WHITE BLOOD COUNT 6.5 10^3/uL (4.3-11.0)
[2017-10-27 20:32] LABS: ALANINE AMINOTRANSFERASE 36 U/L (0-55); ALBUMIN 4.5 GM/DL (3.2-4.5); ALKALINE PHOSPHATASE 66 U/L (40-136); BILIRUBIN,TOTAL 0.3 MG/DL (0.1-1.0); BUN/CREATININE RATIO 24; CALCIUM 9.7 MG/DL (8.5-10.1); CARBON DIOXIDE 23 MMOL/L (21-32); CHLORIDE 104 MMOL/L (98-107); CREATININE SERUM 0.92 MG/DL (0.60-1.30); GFR ESTIMATED > 60; GLUCOSE 110 MG/DL (70-105); POTASSIUM 4.1 MMOL/L (3.6-5.0); SODIUM 140 MMOL/L (135-145); TOTAL PROTEIN 7.4 GM/DL (6.4-8.2)
--- NOTE | 2017-10-27 20:45 | Diagnostic Imaging Report ---
INDICATION: Fall with chest pain PA and lateral views of the chest are obtained. Comparison is made to study of 04/30/2012. Heart size and pulmonary vascularity are within normal limits. There is no pneumothorax or consolidation. Battery pack device projects over the left anterior chest wall. IMPRESSION: No acute abnormality is identified. Dictated by: Dictated on workstation # [id number]
--- NOTE | 2017-10-27 20:48 | Diagnostic Imaging Report ---
PROCEDURE: CT head without contrast. TECHNIQUE: Multiple contiguous axial images were obtained through the brain without the use of intravenous contrast. 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 The corpus callosum appears to be small as well. There is no evidence of hemorrhage or acute infarct. The calvarium is intact and the visualized paranasal sinuses are clear. IMPRESSION: No CT evidence of acute intracranial abnormality is identified. 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 This could be related to old infarct although clinical correlation is recommended. If older studies are available, direct comparison would be useful. Dictated by: Dictated on workstation # [id number]
[2017-10-27] MEDS ORDERED: RX-HYDROCODONE/APAP 5/325 MG #4 TAB PK PO PRN (21:15)
[2017-10-27 21:29] VITALS: BP 133/67
== END 2017-10-27 21:29 | disposition home or self-care (01) ==
LOC: EDUNIT# 20:06 → ER 20:07
DX: R07.81 Pleurodynia (principal); R55 Syncope and collapse; G40.909 Epilepsy, unspecified, not intractable, without status epilepticus; K21.9 Gastro-esophageal reflux disease without esophagitis; Z87.19 Personal history of other diseases of the digestive system; Z79.82 Long term (current) use of aspirin; Z88.8 Allergy status to other drugs, medicaments and biological substances
CPT/HCPCS: 36415; 70450; 71046; 80053; 84484; 85025; 93005

== ENCOUNTER → 2018-11-29 | Outpatient (CLI) | payer BC ==
--- NOTE | 2018-11-29 18:09 | Diagnostic Imaging Report ---
PROCEDURE: US Thyroid. TECHNIQUE: Multiple real-time grayscale images were obtained of the thyroid in various projections. INDICATION: Thyroid nodules. FINDINGS: Comparison is 07/31/2016. The right lobe of the thyroid measures 5.6 x 1.7 x 1.6 cm. It is normal in echogenicity. No right-sided nodules are seen. The left lobe of the thyroid measures 5.7 x 1.6 x 1.8 cm. It is normal in echogenicity. There are three thyroid nodules on the left, two are smaller than 8 mm and are not suspicious. The largest measures 2.0 x 1.3 x 0.8 cm. It is wider than tall without calcifications and with ill-defined margins. It is isoechoic to the thyroid gland. The assessment is TI-RADS 3. This nodule is fairly subtle and was unchanged from prior exam and likely present on more remote priors, but not clearly marked as a discrete nodule. IMPRESSION: 1. TI-RADS 3 left-sided thyroid nodule, recommend continued annual followup. 2. The other nodules are not suspicious. Dictated by: Dictated on workstation # [id number]
== END ==
LOC: RAD 11:07
PROVIDERS: ATTEND Plastic Surgery Plastic Surgery Within the Head and Neck
DX: E04.2 Nontoxic multinodular goiter (principal)
CPT/HCPCS: 76536

== ENCOUNTER → 2019-11-19 | Outpatient (CLI) | payer BC ==
[~2019-11-19] MED LIST changes: -TRAM50TA2 PO; +TRM50T PO
--- NOTE | 2019-11-19 12:40 | Diagnostic Imaging Report ---
PROCEDURE: US Thyroid. TECHNIQUE: Multiple real-time grayscale images were obtained of the thyroid in various projections. INDICATION: Thyroid nodules, follow-up. COMPARISON: Comparison is made with prior thyroid ultrasound from 11/29/2018. FINDINGS: The right lobe of the thyroid measures 5.0 x 1.5 x 1.4 cm and the left lobe measures 5.5 x 1.5 x 1.6 cm. Isthmus is 5 mm in thickness. Right lobe appears to be fairly homogeneous. No discrete thyroid masses are detected. There are three small nodules in the left lobe of the thyroid. The largest is in lower pole measuring 1.3 x 0.9 x 0.9 cm. This compares with 2.0 x 1.3 x 0.8 cm. Subcentimeter nodules in the upper pole and mid left lobe are also noted, stable in size. No new thyroid mass is detected. IMPRESSION: Overall stable thyroid ultrasound when compared to exam one year earlier. The dominant nodule in lower pole does appear to be slightly smaller on today's exam. Dictated by: Dictated on workstation # [id number]
== END ==
LOC: RAD 10:41
PROVIDERS: ATTEND Plastic Surgery Plastic Surgery Within the Head and Neck
DX: E04.2 Nontoxic multinodular goiter (principal)
CPT/HCPCS: 76536

== ENCOUNTER 2020-08-19 17:08 | Emergency (ER) | payer BC ==
[~2020-08-19] VITALS: Ht 175.2 cm; Wt 64.5 kg
[~2020-08-19 17:08] MED LIST changes: -PANT40TA3 PO; +PANT40TA52 PO
--- NOTE | 2020-08-19 18:25 | ED General ---
General Chief Complaint: Neurological Problems Stated Complaint: NEEDS DEPAKOTE LEVELS CHECKED Nursing Triage Note: AMB TO ROOM WITH FRIEND. WHO REPORTS SAW DR OSORIO IN [place] WAS SARTED ON DEPAKOTE TOOK HIS 1ST PILL OF DEPAKOTE ON SUN FRIEND CALLED HIM TODAY TO CHECK ON HIM SHE STATED HE SOUNDED WEAK. SHE WENT TO HOUSE HE REPORTS THAT SHE ACTED ANGERY TOWARD HER CALLED DR OSORIO AND TOLD HER TO TAKE HIM TO THE ER. Nursing Sepsis Screen: No Definite Risk Source of Information: Patient Exam Limitations: No Limitations History of Present Illness Date Seen by Provider: Aug 19, 2020 Time Seen by Provider: 18:05 Initial Comments This 55-year-old gentleman is brought to the emergency room by a friend who helps care for him with concerns about behavioral changes including irritability with emotional lability. He has known seizure disorder and recently started Depakote. He has taken 4 doses so far this week. He sees Dr. Osorio for seizure disorder. He had either a seizure or syncopal episode about 2 weeks ago while walking outside resulting in a fall and a head injury. He had a "black eye" on the left and still has some yellow discoloration to the skin in that a rei. He has seemed more withdrawn according to his friend in recent weeks. The irritability was noted today. The behavior change was enough that she felt he needed to be checked out today and offered to take him in. He agreed. He denies any pain or neurologic deficits. He is alert and oriented. He denies any signs of infection such as cough, shortness of breath, diarrhea, vomiting, or fever. Allergies and Home Medications Allergies Coded Allergies: chlorpromazine HCl (Verified Allergy, Mild, HALLUCINATIONS, 09/17/17) Home Medications Aspirin 81 Mg Tab.chew, 81 MG PO DAILY, (Reported) Levetiracetam 1,000 Mg Tablet, 4,000 MG PO DAILY, (Reported) Pantoprazole Sodium 40 Mg Tablet.dr, 40 MG PO DAILY, (Reported) Sucralfate 1 Gm Tablet, 1 GM PO DAILY, (Reported) Patient Home Medication List Home Medication List Reviewed: Yes Review of Systems Review of Systems Constitutional: no symptoms reported EENTM: see HPI Respiratory: no symptoms reported Cardiovascular: no symptoms reported Gastrointestinal: no symptoms reported Genitourinary: no symptoms reported Musculoskeletal: no symptoms reported Skin: see HPI Psychiatric/Neurological: See HPI Hematologic/Lymphatic: No Symptoms Reported Immunological/Allergic: no symptoms reported Past Itxwefw-Zirwpk-Dizwtk Hx Past Med/Social Hx: Reviewed Nursing Past Med/Soc Hx Patient Social History Alcohol Use: Denies Use Recent Infectious Disease Expo: No Recent Hopitalizations: No Immunizations Up To Date PED Vaccines UTD: Yes Date of Pneumonia Vaccine: Apr 17, 2012 Date of Influenza Vaccine: Aug 11, 2011 Seasonal Allergies Seasonal Allergies: No Past Medical History Surgeries: Yes (bebe cyst removed, INTERNAL LOOP RECORDER, ) Respiratory: No Cardiac: No Neurological: Yes (LAST SEIZURE 2011) Seizure Disorder Reproductive Disorders: No Sexually Transmitted Disease: No HIV/AIDS: No Genitourinary: No Gastrointestinal: Yes Gastroesophageal Reflux, Ulcer Musculoskeletal: No Endocrine: Yes (THYROID NODULES, REACTIVE HYPOGLYCEMIA) HEENT: No Loss of Vision: Denies Hearing Impairment: Denies Cancer: No Psychosocial: No Integumentary: No Blood Disorders: No Adverse Reaction/Blood Tranf: No Physical Exam Vital Signs Vital Signs - First Documented 08/19/20 17:50 Pulse 47 Resp 18 B/P (MAP) 116/76 (89) Pulse Ox 100 O2 Delivery Room Air Capillary Refill : Less Than 3 Seconds Height, Weight, BMI Height: 5'9.00" Weight: 150lbs. 9.0oz. [id number]; 21.00 BMI Method:Stated General Appearance: No Apparent Distress, WD/WN, Thin Eyes: Bilateral Eye Normal Inspection, Bilateral Eye PERRL, Bilateral Eye EOMI HEENT: PERRL/EOMI, TMs Normal, Normal ENT Inspection, Other (pasty mucus membranes taking bruising in the left periorbital and temporal region) Neck: Normal Inspection Respiratory: Lungs Clear, Normal Breath Sounds Cardiovascular: Regular Rate, Rhythm, No Edema, No Murmur Gastrointestinal: Normal Bowel Sounds, Non Tender, Soft Extremity: Normal Inspection, No Pedal Edema Neurologic/Psychiatric: Alert, Oriented x3, No Motor/Sensory Deficits, Normal Mood/Affect, tissue rewinder II-XII Norm as Tested, Other (Normal jeoyze-ok-mmrk and ofxh-hq-bagr) Skin: Normal Color, Warm/Dry Progress/Results/Core Measures Suspected Sepsis Recent Fever Within 48 Hours: No Infection Criteria Present: None New/Unexplained Altered Menta: No Sepsis Screen: No Definite Risk SIRS Temperature: Pulse: 47 Respiratory Rate: 18 Laboratory Tests 08/19/20 18:31: White Blood Count 4.8 Blood Pressure 116 /76 Mean: 89 Laboratory Tests 08/19/20 18:31: Creatinine 0.81, Platelet Count 154, Total Bilirubin 0.2 Results/Orders Lab Results Laboratory Tests Test 08/19/20 18:31 08/19/20 18:58 Range/Units White Blood Count 4.8 4.3-11.0 10^3/uL Red Blood Count 4.44 4.30-5.52 10^6/uL Hemoglobin 13.8 13.3-17.7 g/dL Hematocrit 43 40-54 % Mean Corpuscular Volume 97 80-99 fL Mean Corpuscular Hemoglobin 31 25-34 pg Mean Corpuscular Hemoglobin Concent 32 32-36 g/dL Red Cell Distribution Width 13.9 10.0-14.5 % Platelet Count 154 130-400 10^3/uL Mean Platelet Volume 11.4 9.0-12.2 fL Immature Granulocyte % (Auto) 0 % Neutrophils (%) (Auto) 55 42-75 % Lymphocytes (%) (Auto) 29 12-44 % Monocytes (%) (Auto) 11 0-12 % Eosinophils (%) (Auto) 4 0-10 % Basophils (%) (Auto) 1 0-10 % Neutrophils # (Auto) 2.6 1.8-7.8 10^3/uL Lymphocytes # (Auto) 1.4 1.0-4.0 10^3/uL Monocytes # (Auto) 0.6 0.0-1.0 10^3/uL Eosinophils # (Auto) 0.2 0.0-0.3 10^3/uL Basophils # (Auto) 0.1 0.0-0.1 10^3/uL Immature Granulocyte # (Auto) 0.0 0.0-0.1 10^3/uL Sodium Level 145 135-145 MMOL/L Potassium Level 4.6 3.6-5.0 MMOL/L Chloride Level 110 H 98-107 MMOL/L Carbon Dioxide Level 23 21-32 MMOL/L Anion Gap 12 5-14 MMOL/L Blood Urea Nitrogen 22 H 7-18 MG/DL Creatinine 0.81 0.60-1.30 MG/DL Estimat Glomerular Filtration Rate > 60 BUN/Creatinine Ratio 27 Glucose Level 92 70-105 MG/DL Calcium Level 8.8 8.5-10.1 MG/DL Corrected Calcium 9.1 8.5-10.1 MG/DL Magnesium Level 2.1 1.6-2.4 MG/DL Total Bilirubin 0.2 0.1-1.0 MG/DL Aspartate Amino Transf (AST/SGOT) 22 5-34 U/L Alanine Aminotransferase (ALT/SGPT) 25 0-55 U/L Alkaline Phosphatase 101 40-136 U/L C-Reactive Protein High Sensitivity 0.12 0.00-0.50 MG/DL Total Protein 6.0 L 6.4-8.2 GM/DL Albumin 3.6 3.2-4.5 GM/DL TSH Johnston Testing 0.66 0.35-4.94 UIU/ML Valproic Acid (Depakene) Level 23.9 L 50.0-100.0 UG/ML Urine Color YELLOW Urine Clarity CLEAR Urine pH 7.0 5-9 Urine Specific [place] 1.020 1.016-1.022 Urine Protein NEGATIVE NEGATIVE Urine Glucose (UA) NEGATIVE NEGATIVE Urine Ketones TRACE H NEGATIVE Urine Nitrite NEGATIVE NEGATIVE Urine Bilirubin NEGATIVE NEGATIVE Urine Urobilinogen 0.2 < = 1.0 MG/DL Urine Leukocyte Esterase NEGATIVE NEGATIVE Urine RBC (Auto) NEGATIVE NEGATIVE Urine RBC NONE /HPF Urine WBC NONE /HPF Urine Crystals NONE /LPF Urine Bacteria TRACE /HPF Urine Casts NONE /LPF Urine Mucus NEGATIVE /LPF Urine Culture Indicated NO My Orders Orders - ROXANNA STEEN MD Ct Head Wo (08/19/20 18:16) Cbc With Automated Diff (08/19/20 18:16) Comprehensive Metabolic Panel (08/19/20 18:16) Hs C Reactive Protein (08/19/20 18:16) Magnesium (08/19/20 18:16) Thyroid Analyzer (08/19/20 18:16) Ua Culture If Indicated (08/19/20 18:16) Valproic Acid (08/19/20 18:16) Ed Iv/Invasive Line Start (08/19/20 18:16) Vital Signs/I&O 08/19/20 17:50 Pulse 47 Resp 18 B/P (MAP) 116/76 (89) Pulse Ox 100 O2 Delivery Room Air Capillary Refill : Less Than 3 Seconds Blood Pressure Mean: 89 Progress Note : Progress Note Work-up was grossly unremarkable. Possible causes of his behavioral changes were discussed with the patient and his friend. Close follow-up with his primary care provider was recommended. I also advised notifying Dr. Osorio of the symptoms. See discharge instructions for further discussion. Diagnostic Imaging Diagonstic Imaging: CT Plain Films/CT/US/NM/MRI: head Comments CT head viewed by me and report reviewed. See report below: NAME: MARINA WALLACE [facility] REC#: [id number] PT STATUS: REG ER : 1965 PHYSICIAN: ROXANNA STEEN MD ADMIT DATE: 08/19/20/ER Signed Date of Exam:08/19/20 CT HEAD WO PROCEDURE: CT head without contrast. TECHNIQUE: Multiple contiguous axial images were obtained through the brain without the use of intravenous contrast. Auto Exposure Controls were utilized during the CT exam to meet ALARA standards for radiation dose reduction. INDICATION: Behavior changes after fall and head injury. COMPARISON: Prior examination from 10/27/2017. FINDINGS: The ventricles and sulci are within normal limits. There is no hydrocephalus or cerebral edema. There is no midline shift or mass effect. There is no intracranial mass, hemorrhage, or extra-axial fluid collection. The visualized paranasal sinuses and mastoid air cells are clear. There are no regional areas of decreased attenuation appreciated to suggest an acute CVA. IMPRESSION: No acute intracranial abnormality. Dictated by: Dictated on workstation # [id number] Dict: 08/19/[id number] Trans: 08/19/201858 [id number] Interpreted by: MANDY GARCIA MD Electronically signed by: MANDY GARCIA MD 08/19/201858 Departure Impression Primary Impression: Closed head injury Qualified Codes: S09.90XA - Unspecified injury of head, initial encounter Additional Impression: Behavioral change Disposition: 01 HOME, SELF-CARE Condition: Stable Departure-Patient Inst. Decision time for Depature: 19:41 Referrals: AMINA HOUSE DO (PCP/Family) Primary Care Physician Patient Instructions: Closed Head Injury, Seizures Add. Discharge Instructions: The exact cause of your symptoms is uncertain. Your work-up in the ER today was unremarkable. Follow-up with your primary care provider soon as possible. Please also notify Dr. Osorio of your concerns. Some possible contributing factors to discuss with your doctor might include effects from concussion, adverse reaction from starting Depakote, depression, post ictal state from seizures, etc. Call with questions or concerns. Return to the ER if you have worsening symptoms. All discharge instructions reviewed with patient and/or family. Voiced understanding. Copy Copies To 1: AMINA HOUSE JOSHUA T MD Aug 19, 2020 18:24
[2020-08-19 18:38] LABS: BASOPHILS # (AUTO) 0.1 10^3/uL (0.0-0.1); BASOPHILS % (AUTO) 1 % (0-10); EOSINOPHILS # (AUTO) 0.2 10^3/uL (0.0-0.3); EOSINOPHILS % (AUTO) 4 % (0-10); HEMATOCRIT 43 % (40-54); HEMOGLOBIN 13.8 g/dL (13.3-17.7); LYMPHOCYTES # (AUTO) 1.4 10^3/uL (1.0-4.0); LYMPHOCYTES % (AUTO) 29 % (12-44); MEAN CORPUSCULAR HEMOGLOBIN 31 pg (25-34); MEAN CORPUSCULAR HGB CONC 32 g/dL (32-36); MEAN CORPUSCULAR VOLUME 97 fL (80-99); MEAN PLATELET VOLUME 11.4 fL (9.0-12.2); MONOCYTES # (AUTO) 0.6 10^3/uL (0.0-1.0); MONOCYTES % (AUTO) 11 % (0-12); NEUTROPHILS # (AUTO) 2.6 10^3/uL (1.8-7.8); NEUTROPHILS % (AUTO) 55 % (42-75); PLATELET COUNT 154 10^3/uL (130-400); WHITE BLOOD COUNT 4.8 10^3/uL (4.3-11.0)
[2020-08-19 18:56] LABS: ALBUMIN 3.6 GM/DL (3.2-4.5); CHLORIDE 110 MMOL/L (98-107); POTASSIUM 4.6 MMOL/L (3.6-5.0); SODIUM 145 MMOL/L (135-145)
[2020-08-19 18:57] LABS: CALCIUM 8.8 MG/DL (8.5-10.1)
[2020-08-19 18:59] LABS: GLUCOSE 92 MG/DL (70-105)
[2020-08-19 19:00] LABS: BILIRUBIN,TOTAL 0.2 MG/DL (0.1-1.0); CARBON DIOXIDE 23 MMOL/L (21-32)
--- NOTE | 2020-08-19 19:00 | Diagnostic Imaging Report ---
PROCEDURE: CT head without contrast. TECHNIQUE: Multiple contiguous axial images were obtained through the brain without the use of intravenous contrast. Auto Exposure Controls were utilized during the CT exam to meet ALARA standards for radiation dose reduction. INDICATION: Behavior changes after fall and head injury. COMPARISON: Prior examination from 10/27/2017. FINDINGS: The ventricles and sulci are within normal limits. There is no hydrocephalus or cerebral edema. There is no midline shift or mass effect. There is no intracranial mass, hemorrhage, or extra-axial fluid collection. The visualized paranasal sinuses and mastoid air cells are clear. There are no regional areas of decreased attenuation appreciated to suggest an acute CVA. IMPRESSION: No acute intracranial abnormality. Dictated by: Dictated on workstation # [id number]
[2020-08-19 19:02] LABS: ALKALINE PHOSPHATASE 101 U/L (40-136); CREATININE SERUM 0.81 MG/DL (0.60-1.30)
[2020-08-19 19:03] LABS: BUN/CREATININE RATIO 27
[2020-08-19 19:05] LABS: BILIRUBIN,URINE NEGATIVE (NEGATIVE); CLARITY,URINE CLEAR; COLOR,URINE YELLOW; GLUCOSE, URINE (UA) NEGATIVE (NEGATIVE); KETONES,URINE TRACE (NEGATIVE); LEUKOCYTE ESTERASE ,URINE NEGATIVE (NEGATIVE); NITRITE,URINE NEGATIVE (NEGATIVE); PROTEIN,URINE NEGATIVE (NEGATIVE)
[2020-08-19 19:05] LABS: ALANINE AMINOTRANSFERASE 25 U/L (0-55); MAGNESIUM 2.1 MG/DL (1.6-2.4)
[2020-08-19 19:08] LABS: GFR ESTIMATED > 60
[2020-08-19 19:13] LABS: VALPROIC ACID 23.9 UG/ML (50.0-100.0)
[2020-08-19 19:26] LABS: TSH (THYROID ANALYZER) 0.66 UIU/ML (0.35-4.94)
[2020-08-19 19:33] LABS: BACTERIA,URINE TRACE /HPF
[2020-08-19 19:55] VITALS: BP 119/73
== END 2020-08-19 19:55 | disposition home or self-care (01) ==
LOC: EDUNIT# 17:08 → ER 17:11
DX: S09.90XA Unspecified injury of head, initial encounter (principal); F98.9 Unspecified behavioral and emotional disorders with onset usually occurring in childhood and adolescence; G40.909 Epilepsy, unspecified, not intractable, without status epilepticus; K21.9 Gastro-esophageal reflux disease without esophagitis; Z79.82 Long term (current) use of aspirin; Z88.8 Allergy status to other drugs, medicaments and biological substances; Z95.810 Presence of automatic (implantable) cardiac defibrillator; Z79.899 Other long term (current) drug therapy; W18.30XA Fall on same level, unspecified, initial encounter
CPT/HCPCS: 36415; 70450; 80053; 80164; 81000; 83735; 84443; 85025; 86141

== ENCOUNTER → 2020-10-19 | Day surgery (SDC) | payer BC ==
[~2020-10-19] VITALS: Ht 165 cm; Wt 65.0 kg
[~2020-10-19] MED LIST changes: +LIDOCAINE 1% INJ 20 ML 20 ML VIAL ONE
[2020-10-19 10:00] VITALS: BP 112/70
--- NOTE | 2020-10-19 14:46 | OPERATIVE REPORT ---
DATE OF SERVICE: 10/19/2020 PREOPERATIVE DIAGNOSIS: Implantable loop recorder at end of life. POSTOPERATIVE DIAGNOSIS: Implantable loop recorder at end of life. PROCEDURE PERFORMED: Implantable loop recorder explantation. INDICATIONS: The patient is a 55-year-old man, who had an implantable loop recorder placed in 02/2013 for symptoms of possible syncope by Dr. Mora at [facility]. The device is now at end of life and he has requested removal. The procedure was carried out today. DESCRIPTION OF PROCEDURE: [facility] The left prepectoral area, the site of loop recorder implantation, was prepared and draped in the usual sterile fashion. Lidocaine 1% was used for local anesthesia. Sharp and blunt dissection was used to open the pocket and the device was removed from the pocket and then closed with 3.0 Vicryl. He tolerated the procedure well. This was a [employer] Reveal XT device. Job ID: [id number] DocumentID: [id number] Dictated Date: 10/19/2020 10:59:10 Family Law Attorney Date: 10/19/2020 14:45:37 Dictated By: ADOLFO GAMBINO MD, MA, FACP, FACC,
== END ==
LOC: CATH 10:00
PROVIDERS: ATTEND Internal Medicine Cardiovascular Disease
DX: Z45.010 Encounter for checking and testing of cardiac pacemaker pulse generator [battery] (principal); I08.1 Rheumatic disorders of both mitral and tricuspid valves
CPT/HCPCS: 33286

== ENCOUNTER 2020-11-09 09:00 | Day surgery (SDC) | payer BC ==
[~2020-11-09] VITALS: Ht 175 cm; Wt 65.0 kg
[2020-11-09 08:06] VITALS: BP 110/56
[~2020-11-09 09:00] MED LIST changes: +LIDOCAINE 1% INJ 20 ML 20 ML VIAL INJ ONE; -LIDOCAINE 1% INJ 20 ML 20 ML VIAL ONE
--- NOTE | 2020-11-09 13:10 | OPERATIVE REPORT ---
DATE OF SERVICE: 11/09/2020 PREOPERATIVE DIAGNOSIS: Seizure versus syncope. POSTOPERATIVE DIAGNOSIS: Seizure versus syncope. PROCEDURE: Implantable loop recorder implantation. INDICATIONS: The patient is a 55-year-old gentleman who has had seizure versus syncope. He remains concerned that his episode may be of cardiac origin, although previous implantable loop recorder implantation has not indicated significant arrhythmia. Because of continuing symptoms and is concerned, repeat implantable loop recorder implantation was carried out today after his old implantable loop recorder had been removed about two weeks ago after it had reached end of life. [facility] The left prepectoral area was prepared and draped in the usual sterile fashion. Lidocaine 1% was used for local anesthesia. The tools provided with the [employer] Reveal LINQ device were used to make a subcutaneous pocket anterior to the fourth intercostal space into which the implantable loop recorder was placed and the wound edges were closed using Steri-Strips and Dermabond. He tolerated the procedure well. The serial number of the device [id number]. Job ID: [id number] DocumentID: [id number] Dictated Date: 11/09/2020 08:45:42 Roll Icer Date: 11/09/2020 13:09:05 Dictated By: ADOLFO GAMBINO MD, MA, FACP, FACC,
== END 2020-11-09 09:02 | disposition home or self-care (01) ==
LOC: CATH 09:00
PROVIDERS: ATTEND Internal Medicine Cardiovascular Disease
DX: I08.1 Rheumatic disorders of both mitral and tricuspid valves (principal); R55 Syncope and collapse; Z79.899 Other long term (current) drug therapy
CPT/HCPCS: 33285; C1764

== ENCOUNTER → 2020-11-18 | Outpatient (CLI) | payer BC ==
[~2020-11-18] MED LIST changes: -LIDOCAINE 1% INJ 20 ML 20 ML VIAL INJ ONE
--- NOTE | 2020-11-18 15:08 | Diagnostic Imaging Report ---
PROCEDURE: US Thyroid. TECHNIQUE: Multiple real-time grayscale images were obtained of the thyroid in various projections. INDICATION: Nontoxic multinodular goiter. COMPARISON: November 19, 2019, and July 31, 2016. FINDINGS: The right lobe of the thyroid gland measures 5.2 x 2.0 x 1.4 cm. It maintains a homogeneous echotexture without discrete nodule. The left lobe of the thyroid gland measures 5.8 x 1.7 x 1.5 cm. A spongiform hypoechoic 0.8 x 0.7 cm circumscribed nodule is noted within the left mid thyroid lobe, unchanged since July 2016. An additional solid isoechoic nodule measuring 1.5 x 1.5 x 0.8 cm is present within the inferior pole of the left thyroid lobe, unchanged since 2017. 0.3 cm cyst is present within the medial left thyroid lobe, which is felt to be benign. No new left thyroid nodules. The isthmus is unremarkable. IMPRESSION: Subcentimeter left thyroid nodules are again identified. The spongiform and solid dominant nodules within the left thyroid lobe are unchanged since 2017 and felt to be benign. No new suspicious thyroid nodule. Dictated by: Dictated on workstation # [id number]
== END ==
LOC: RAD 12:15
PROVIDERS: ATTEND Plastic Surgery Plastic Surgery Within the Head and Neck
DX: E04.2 Nontoxic multinodular goiter (principal)
CPT/HCPCS: 76536

== ENCOUNTER 2021-11-12 07:50 | Emergency (ER) | payer BC ==
[~2021-11-12] VITALS: Ht 175.6 cm; Wt 65.7 kg
--- NOTE | 2021-11-12 08:11 | ED Fall/Injury ---
General Chief Complaint: Trauma-Non Activation Stated Complaint: FALL Source: patient Exam Limitations: no limitations History of Present Illness Date Seen by Provider: Nov 12, 2021 Time Seen by Provider: 08:06 Initial Comments Patient is a 56-year-old male who presents to the emergency department after a fall/syncopal episode while walking this morning. [employer]. Patient does not recall the events immediately preceding the syncopal event. He has mild discomfort to his left forehead where he sustained a contusion and small laceration. He denies severe headache, neck pain, chest pain, belly pain. He denies extremity injury. No back pain. He has not had any medications that would cause him to be sleepy or intoxicated. No alcohol this morning. Per review of medical record he has had multiple events of syncope in the past. He is followed by Dr. Warner and has an implantable loop recorder from a year ago. He also has a seizure disorder and is on Keppra. He denies recent illnesses such as COVID concerns, shortness of breath, nausea vomiting, diarrhea or urinary complaints. He cannot recall his last tetanus shot. All other review of systems reviewed and negative except as stated. Occurred: just prior to arrival Severity: moderate Injuries/Pain Location: head Context: fainted Loss of Consciousness: unsure Associated Symptoms (Fall): Denies Symptoms Allergies and Home Medications Allergies Coded Allergies: chlorpromazine HCl (Verified Allergy, Mild, HALLUCINATIONS, 09/17/17) Patient Home Medication List Home Medication List Reviewed: Yes Aspirin (Aspirin) 81 Mg Tab.chew, 81 MG PO DAILY, (Reported) Entered as Reported by: DYLAN DUNN on 09/17/17 115 Levetiracetam (Keppra) 1,000 Mg Tablet, 4,000 MG PO DAILY, (Reported) Entered as Reported by: DYLAN DUNN on 09/17/17 115 Pantoprazole Sodium (Pantoprazole Sodium) 40 Mg Tablet.dr, 40 MG PO DAILY, (Reported) Entered as Reported by: DYLAN DUNN on 09/17/171156 Sucralfate (Sucralfate) 1 Gm Tablet, 1 GM PO DAILY, (Reported) Entered as Reported by: DYLAN DUNN on 09/17/17 115 Review of Systems Review of Systems Constitutional: see HPI Eyes: No Symptoms Reported Ears, Nose, Mouth, Throat: no symptoms reported Respiratory: no symptoms reported Cardiovascular: no symptoms reported Gastrointestinal: no symptoms reported Genitourinary: no symptoms reported Musculoskeletal: no symptoms reported Skin: other (laceration) Psychiatric/Neurological: Headache (minimal) All Other Systems Reviewed Negative Unless Noted: Yes Past Bavsubm-Womada-Zagifw Hx Immunizations Up To Date PED Vaccines UTD: Yes Seasonal Allergies Seasonal Allergies: No Past Medical History Surgeries: Yes (bebe cyst removed, INTERNAL LOOP RECORDER, ) Respiratory: No Currently Using CPAP: No Currently Using BIPAP: No Cardiac: Yes Syncope Neurological: No Seizure Disorder Reproductive Disorders: No Sexually Transmitted Disease: No HIV/AIDS: No Genitourinary: No Gastrointestinal: No Gastroesophageal Reflux, Ulcer Musculoskeletal: No Endocrine: Yes (THYROID NODULES, REACTIVE HYPOGLYCEMIA) HEENT: No Loss of Vision: Denies Hearing Impairment: Denies Cancer: No Psychosocial: No Integumentary: No Blood Disorders: No Adverse Reaction/Blood Tranf: No Physical Exam Vital Signs Vital Signs - First Documented 11/12/21 07:50 Temp 36.6 Pulse 51 Resp 16 B/P (MAP) 104/67 (79) Pulse Ox 96 O2 Delivery Room Air Capillary Refill : Height, Weight, BMI Height: 5'9.00" Weight: 150lbs. 9.0oz. 68.725666ut; 21.22 BMI Method:Stated General Appearance: WD/WN, no apparent distress HEENT: PERRL/EOMI, TMs normal, pharynx normal Neck: non-tender, normal inspection, other (Patient presented with cervical collar per EMS. He has no clinical evidence of intoxication, no midline tenderness, no distracting injury, he is alert and oriented x3. Cervical collar was removed based on clinical exam at 08 15. Patient demonstrates full active range of motion without any neurologic deficit.) Cardiovascular: regular rate, rhythm Respiratory: lungs clear, normal breath sounds, no respiratory distress, no accessory muscle use Gastrointestinal: non tender, soft Back: normal inspection, no vertebral tenderness Extremities: normal range of motion, non-tender, normal inspection, no pedal edema, no calf tenderness, other (no pevic tenderness) Neurologic/Psychiatric: repairer and checker II-XII nml as tested, no motor/sensory deficits, alert, normal mood/affect, oriented x 3 Skin: normal color, warm/dry, other (2.0 cm laceration to the left forehead. minimal bleeding) Vidhi Coma Score Best Eye Response: (4) Open Spontaneously Best Verbal Response: (5) Oriented Best Motor Response: (6) Obeys Commands Procedures/Interventions Wound Location: Face Other Wound Location left forehead Wound Length (cm): 2.0 Wound's Depth, Shape: superficial, irregular Wound Explored: clean Irrigated w/ Saline (ccs): 150 Anesthesia: 1% Lidocaine Suture: Prolene Suture Size: 5-0 Number of Sutures: 5 Layer Closure?: 2 Number Deep Layer Sutures: 1 Sterile Dressing Applied?: Yes Progress Patient had 1 Monocryl absorbable size 4-0 suture placed in the subcutaneous tissues for hemostasis and to bring wound margins closer together. 5 Prolene superficial interrupted sutures size 5 oh placed in the skin. Good hemostasis and wound closure achieved. Progress/Results/Core Measures Results/Orders Lab Results Laboratory Tests Test 11/12/21 08:01 Range/Units Glucometer 82 70-110 MG/DL My Orders Orders - GEORGIA BONILLA MD Dipht,Pertuss(Acell),Tet Adult (Boostrix (11/12/21 08:30) Lidocaine 1% Inj 30 Ml (Xylocaine 1% Inj (11/12/21 08:30) Acetaminophen Tablet (Tylenol Tablet) (11/12/21 08:30) Ekg Tracing (11/12/21 08:59) Lidocaine 1% Inj 20 Ml (Xylocaine 1% Inj (11/12/21 09:08) Medications Given in ED Current Medications Medications Dose Ordered Sig/Dom Route Start Time Stop Time Status Last Admin Dose Admin Acetaminophen 1,000 mg ONCE ONCE PO 11/12/21 08:30 11/12/21 08:32 DC 11/12/21 09:11 1,000 MG Diphtheria/ Tetanus/Acell Pertussis 0.5 ml ONCE ONCE IM 11/12/21 08:30 11/12/21 08:32 DC 11/12/21 09:12 0.5 ML Lidocaine HCl 20 ml STK-MED ONCE .ROUTE 11/12/21 09:08 11/12/21 09:10 DC 11/12/21 09:12 20 ML Vital Signs/I&O 11/12/21 11/12/21 07:50 07:50 Temp 36.6 36.6 Pulse 51 51 Resp 16 16 B/P (MAP) 104/67 (79) 104/67 (79) Pulse Ox 96 96 O2 Delivery Room Air Initial ECG Impression Date: Nov 12, 2021 Initial ECG Impression Time: 08:03 Initial ECG Rate: 52 Initial ECG Rhythm: Normal Sinus Initial ECG Intervals: Normal Initial ECG Impression: Normal Departure Impression Primary Impression: Laceration of forehead Qualified Codes: S01.81XA - Laceration without foreign body of other part of head, initial encounter Additional Impressions: Contusion of forehead Qualified Codes: S00.83XA - Contusion of other part of head, initial encounter Syncope and collapse Disposition: 01 HOME, SELF-CARE Condition: Stable Departure-Patient Inst. Decision time for Depature: 08:20 Referrals: AMINA HOUSE DO (PCP/Family) Primary Care Physician Patient Instructions: Laceration Repair With Stitches (DC), Minor Head Injury (DC) Add. Discharge Instructions: The sutures will need to come out in 5 or 6 days. You can come back to the emergency department to have the sutures removed as part of this visit. Take Tylenol extra strength, 2 tablets every 6 hours as needed for headache. You may notice that you have mild headache over the next couple of days with a little nausea or fatigue. These can be signs of concussion. If you have severe headache, severe vomiting, repeat passing out spells or increasing confusion please come back to the emergency department for reevaluation. Please call your primary doctor's office on Sunday for a follow-up visit next week. GEORGIA BONILLA MD Nov 12, 2021 08:11
[2021-11-12] MEDS ORDERED: LIDOCAINE 1% INJ 30 ML (XYLOCAINE) VIAL INJ ONE (08:30)
[2021-11-12] MEDS ORDERED: TETANUS,DIPTH,PERTUSS P/F (BOOSTRIX) 0.5 ML VIAL IM ONE (08:30)
[2021-11-12] MEDS ORDERED: ACETAMINOPHEN 500 MG TAB (TYLENOL) PO ONE (08:30)
[2021-11-12] MEDS ORDERED: LIDOCAINE 1% INJ 20 ML VIAL ONE (09:08)
[2021-11-12 09:40] VITALS: BP 106/62
== END 2021-11-12 09:43 | disposition home or self-care (01) ==
LOC: EDUNIT# 07:57 → ER 07:58
DX: S01.81XA Laceration without foreign body of other part of head, initial encounter (principal); R55 Syncope and collapse; G40.909 Epilepsy, unspecified, not intractable, without status epilepticus; Z23 Encounter for immunization; Z79.899 Other long term (current) drug therapy; W19.XXXA Unspecified fall, initial encounter; Y93.01 Activity, walking, marching and hiking
CPT/HCPCS: 82947; 90715; 93005

== ENCOUNTER 2022-02-28 11:00 | Day surgery (SDC) | payer BC ==
[~2022-02-28] VITALS: Ht 175.3 cm; Wt 65.7 kg
[2022-02-28] VITALS (9 sets, daily range): BP systolic 115–139; BP diastolic 56–84
[2022-02-28 09:41] LABS: HEMATOCRIT 46 % (40-54); HEMOGLOBIN 15.2 g/dL (13.3-17.7); MEAN CORPUSCULAR HEMOGLOBIN 31 pg (25-34); MEAN CORPUSCULAR HGB CONC 33 g/dL (32-36); MEAN CORPUSCULAR VOLUME 94 fL (80-99); MEAN PLATELET VOLUME 11.4 fL (9.0-12.2); PLATELET COUNT 172 10^3/uL (130-400); WHITE BLOOD COUNT 4.9 10^3/uL (4.3-11.0)
[2022-02-28 09:56] LABS: PROTHROMBIN TIME PATIENT 13.3 SEC (12.2-14.7)
[2022-02-28 10:14] LABS: ALBUMIN 4.5 GM/DL (3.2-4.5); BILIRUBIN,TOTAL 0.4 MG/DL (0.1-1.0); CALCIUM 9.4 MG/DL (8.5-10.1); CREATININE SERUM 0.78 MG/DL (0.60-1.30); POTASSIUM 4.1 MMOL/L (3.6-5.0); TOTAL PROTEIN 7.3 GM/DL (6.4-8.2)
[~2022-02-28 11:00] MED LIST changes: +HEParin (CATH LAB) 1,000 ML IV ONE; +LAMO100T5 PO; +LIDOCAINE 1% INJ 30 ML (XYLOCAINE) VIAL ONE; +MIDO5TAB3 PO; +NS IV 1000 ML 1,000 ML IV ONE; +NS IV 1000 ML 2,000 ML ONE; +ceFAZolin INJECTION 1,000 MG ONE; +ceFAZolin INJECTION 1,000 MG VIAL IV ONE
[2022-02-28] MEDS ORDERED: MIDAZOLAM 5 MG/5 ML (VERSED) VIAL ONE ×2 (12:33→13:21)
[2022-02-28] MEDS ORDERED: fentaNYL INJ 100 MCG/2 ML AMP ONE ×2 (12:33→13:20)
[2022-02-28] MEDS ORDERED: LIDOCAINE 1% INJ 20 ML VIAL ONE (14:59)
[2022-02-28] MEDS ORDERED: PATIENT MAY USE OWN MEDS, ALL PO SCH (16:00)
[2022-02-28] MEDS ORDERED: NS IV 1000 ML 1,000 ML IV SCH (16:00)
[2022-02-28] MEDS: MIDODRINE 10 MG (PROAMATINE) TAB PO SCH (17:31)
[2022-02-28] MEDS: SUCRALFATE 1 GM (CARAFATE) TAB PO SCH ×2 (17:31→20:57)
[2022-02-28] MEDS: ceFAZolin INJECTION 1,000 MG in NS (IVPB) 50 ML IV SCH (20:58)
[2022-02-28] MEDS ORDERED: NON-FORMULARY MEDICATION 1 EA EA (Midodrine HCl 5 MG) PO SCH (21:00)
--- NOTE | 2022-02-28 21:07 | Diagnostic Imaging Report ---
INDICATION: Post pacemaker placement. Frontal chest obtained at 04:08 p.m. compared with 10/27/2017. FINDINGS: There is a new dual-lead pacemaker device with right atrial and ventricular leads. There is no pneumothorax or pleural fluid following pacemaker placement. There is no focal infiltrate. IMPRESSION: New pacemaker device in place with no pneumothorax or pleural fluid following device placement. Dictated by: Dictated on workstation # [id number]
[2022-03-01] VITALS: BP 111/65
--- NOTE | 2022-03-01 02:03 | OPERATIVE REPORT ---
DATE OF SERVICE: 02/28/2022 PREOPERATIVE DIAGNOSIS: Syncope due to long pauses. POSTOPERATIVE DIAGNOSIS: Syncope due to long pauses. PROCEDURE: Dual chamber pacemaker implantation. ESTIMATED BLOOD LOSS: Less than 10 mL. INDICATIONS: The patient is a 56-year-old man who has been experiencing syncope and an implantable loop recorder had indicated long pauses. This is an absence of any rate-lowering medications. Accordingly, dual chamber pacemaker implantation was advised and was carried out today after having obtained an informed consent. DESCRIPTION OF PROCEDURE: [facility] The left prepectoral area was prepared and draped in the usual sterile fashion. Lidocaine 1% was used for local anesthesia. Modified Seldinger technique is used to advance two guidewires into the left subclavian vein and the tips were placed in the right atrium. Lidocaine 1% was used for local anesthesia. Sharp and blunt dissection was used to make a pacemaker pocket. Good hemostasis was assured. The guidewires were used to advance sheaths and the wires were removed. The sheaths were used to advance leads and the sheaths were removed. The ventricular lead was placed at the high septum in the right ventricle and was actively fixed. Good pacing and capture thresholds were obtained. The atrial lead was positioned at the lateral wall of the right atrium. Good sensing and capture thresholds were obtained. The right atrial lead is Medtronic model 318072-21 with serial #[id number]. The ventricular lead is model 408437-75 with serial #[id number]. The pacemaker is Medtronic model W1DR01 with serial #[id number]. The leads were sutured to the prepectoral fascia using sleeves and 0 Ethibond. The pocket was thoroughly irrigated with normal saline. Good hemostasis was assured. The pacemaker was placed in an antibiotic pocket (TYRX). This was placed in the pacemaker pocket and the pocket was closed in 2 layers using 3.0 Vicryl. He tolerated the procedure well. There was no diaphragmatic stimulation at 10 volts. P waves are measured at 1.6 millivolts. R waves are measured at 7.9 millivolts. Right atrial lead impedance is 646 ohms. Right ventricular lead impedance is 665 ohms. Ventricular capture threshold is 0.5 volts at 0.4 milliseconds. Atrial capture threshold is 0.75 volts at 0.4 milliseconds. The pacemaker is in the AAIR to DDDR mode with a lower rate of 60 beats per minute and upper tracking rate of 130 beats per minute. Job ID: [id number] DocumentID: [id number] Dictated Date: 02/28/2022 15:26:08 Production Line Solderer Date: 03/01/2022 02:02:27 Dictated By: ADOLFO GAMBINO MD, MA, FACP, FACC,
[2022-03-01 03:55] VITALS: BP 112/62
[2022-03-01 04:00] VITALS: BP 110/64
[2022-03-01] MEDS: ceFAZolin INJECTION 1,000 MG in NS (IVPB) 50 ML IV SCH ×2 (05:37→13:44)
[2022-03-01 05:55] LABS: HEMATOCRIT 42 % (40-54); HEMOGLOBIN 14.2 g/dL (13.3-17.7); MEAN CORPUSCULAR HEMOGLOBIN 32 pg (25-34); MEAN CORPUSCULAR HGB CONC 34 g/dL (32-36); MEAN CORPUSCULAR VOLUME 94 fL (80-99); MEAN PLATELET VOLUME 11.8 fL (9.0-12.2); PLATELET COUNT 158 10^3/uL (130-400); WHITE BLOOD COUNT 7.7 10^3/uL (4.3-11.0)
[2022-03-01 06:13] LABS: ALBUMIN 3.8 GM/DL (3.2-4.5); BILIRUBIN,TOTAL 0.5 MG/DL (0.1-1.0); CALCIUM 9.4 MG/DL (8.5-10.1); CREATININE SERUM 0.77 MG/DL (0.60-1.30); POTASSIUM 3.8 MMOL/L (3.6-5.0); TOTAL PROTEIN 6.1 GM/DL (6.4-8.2)
[2022-03-01 07:44] VITALS: BP 129/76
--- NOTE | 2022-03-01 08:04 | Progress Note - Cardiology ---
Cardiology SOAP Progress Note Subjective: Sitting up in bed No c/o dizziness, CP, SOB or palpitations No c/o discomfort at device insertion site No c/o n/v Objective: I&O/Vital Signs 03/01/22 03/01/22 03/01/22 03/01/22 03:55 03:55 04:00 07:04 Temp 36.8 Pulse 74 73 73 B/P (MAP) 112/62 (79) 110/64 (79) Pulse Ox 93 94 94 O2 Delivery Room Air Room Air Room Air 03/01/22 03/01/22 03/01/22 03/01/22 07:44 08:00 08:00 11:20 Temp 38.0 36.8 37.5 Pulse 70 71 Resp 18 16 B/P (MAP) 129/76 (93) 114/65 (81) Pulse Ox 97 94 95 O2 Delivery Room Air Room Air Room Air 03/01/22 00:00 Intake Total 1290 ml Output Total 0 ml Balance 1290 ml Weight (Pounds): 150 Weight (Ounces): 9.0 Weight (Calculated Kilograms): 68.875510 Side: left Device Insertion Site: without hematoma Swelling: without swelling Drainage: No Bruising: mild bruising Constitutional: AAO x 3, well-developed, well-nourished Respiratory: No accessory muscle use, No respiratory distress; chest expansion is symmetric, chest is bilaterally symmetric, lungs clear to auscultation Cardiovascular: regular rate-rhythm; No JVD; S1 and S2 Gastrointestional: No tender; soft, audible bowel sounds Extremities: no lower extremity edema bilateral Neurologic/Psychiatric: grossly intact (moves all extremities) Skin: No rash on exposed areas, No ulcerations on exposed areas Results/Procedures: Labs Laboratory Tests 03/01/22 05:30: White Blood Count 7.7, Red Blood Count 4.47, Hemoglobin 14.2, Hematocrit 42, Mean Corpuscular Volume 94, Mean Corpuscular Hemoglobin 32, Mean Corpuscular Hemoglobin Concent 34, Red Cell Distribution Width 14.1, Platelet Count 158, Mean Platelet Volume 11.8, Sodium Level 139, Potassium Level 3.8, Chloride Level 106, Carbon Dioxide Level 24, Anion Gap 9, Blood Urea Nitrogen 12, Creatinine 0.77, Estimat Glomerular Filtration Rate 104, BUN/Creatinine Ratio 16, Glucose Level 101, Calcium Level 9.4, Corrected Calcium 9.6, Total Bilirubin 0.5, Aspartate Amino Transf (AST/SGOT) 24, Alanine Aminotransferase (ALT/SGPT) 26, Alkaline Phosphatase 66, Total Protein 6.1L, Albumin 3.8 Microbiology 02/28/22 MRSA Screen - Final, Complete MRSA not isolated Procedures NAME: MARINA WALLACE [facility] REC#: [id number] PT STATUS: REG SDC : 1965 PHYSICIAN: ADOLFO GAMBINO MD, MA, FACP, FACC, FSCAI, CCDS ADMIT DATE: 02/28/22/[facility] Signed Date of Exam:02/28/22 CHEST 1 VIEW, AP/PA ONLY INDICATION: Post pacemaker placement. Frontal chest obtained at 04:08 p.m. compared with 10/27/2017. FINDINGS: There is a new dual-lead pacemaker device with right atrial and ventricular leads. There is no pneumothorax or pleural fluid following pacemaker placement. There is no focal infiltrate. IMPRESSION: New pacemaker device in place with no pneumothorax or pleural fluid following device placement. Dictated by: Dictated on workstation # [id number] Dict: 02/28/22 1658 Trans: 03/01/22 0800 [id number] Interpreted by: MIGUELITO FRIED MD Electronically signed by: MIGUELITO FRIED MD 03/01/22 0800 A/P: Assessment: Syncope d/t long Sinus pauses seen on ILR transmission - S/P dual chamber PPM implant on 02-28-22 - S/p implantable loop recorder (Reveal XT) placed in Feb 2013 for eval of symptoms of possible syncope, by Dr Mora, at [facility]. No arrhythmia has been recorded. Symptoms were felt to be due to seizure disorder - MPI of June 08, 2015 showed no evidence of any significant myocardial ischemia or infarction. Normal regional wall motion LVEF 59% - Echocardiogram of June 07, 2015 showed normal global LV systolic function with an ejection fraction of approx 55%. Trivial to mild MR and TR. No evidence of significant valvular stenosis. PASP approx 25mmHg - Re-implantation of ILR with removal of previous ILR, on 11-09-20 d/t re-current syncopal episode of undetermined etiology in July 2020 Seizure disorder - (grand mal seizures) since age 5 (last episode in November 2015), managed by his neurologist Dr Muro H/o hyperthyroidism - managed by Dr Lu Plan: S/P successful PPM implant on 02-28-22 Continue current medication regimen Ceftin 500mg BID x 5 days Return to office on this Sunday for device implant site and ILR removal site dressing changes Instructions regarding activity restrictions reviewed with verbalized understanding F/U in 2 weeks or sooner if needed BALA FELIX Mar 01, 2022 08:04
[2022-03-01] MEDS ORDERED: CEFU500T63 PO (08:05)
--- NOTE | 2022-03-01 08:06 | Discharge Inst-Cardiology ---
Discharge Inst-Cardiac Discharge Medications New Medications: Cefuroxime Axetil (Cefuroxime) 500 Mg Tablet 500 MG PO BID, #10 TAB Continued Medications: Lamotrigine (Lamotrigine) 100 Mg Tablet 100 MG PO BID, TAB Levetiracetam (Keppra) 1,000 Mg Tablet 1000 MG PO BID, TAB Midodrine HCl (Midodrine HCl) 5 Mg Tablet 5 MG PO TID, TAB Sucralfate (Sucralfate) 1 Gram Tablet 1 GM PO QID, TAB New, Converted or Re-Newed RX: Transmitted to Pharmacy Patient Instructions Patient Instructions: Please schedule appointment for Thursday, March 03, 2022 for a dressing change Please schedule appointment to see Dr. Warner in 2 weeks BALA FELIX Mar 01, 2022 08:06
[2022-03-01] MEDS: MIDODRINE 10 MG (PROAMATINE) TAB PO SCH ×2 (08:58→13:43)
[2022-03-01] MEDS: SUCRALFATE 1 GM (CARAFATE) TAB PO SCH ×2 (08:58→13:43)
[2022-03-01 11:20] VITALS: BP 114/65
--- NOTE | 2022-03-01 11:52 | Progress Note - Cardiology ---
Cardiology SOAP Progress Note Subjective: No cp or palp or syncope or shortness of breath No n/v/d No focal weakness Denies fever, chills, gen weakness, malaise Objective: I&O/Vital Signs 03/01/22 03/01/22 03/01/22 03/01/22 00:00 00:00 01:00 03:55 Pulse 73 71 B/P (MAP) 111/65 (80) Pulse Ox 94 93 O2 Delivery Room Air Room Air Room Air 03/01/22 03/01/22 03/01/22 03/01/22 03:55 04:00 07:04 07:44 Temp 36.8 38.0 Pulse 74 73 73 70 Resp 18 B/P (MAP) 112/62 (79) 110/64 (79) 129/76 (93) Pulse Ox 94 94 97 O2 Delivery Room Air Room Air Room Air 03/01/22 03/01/22 03/01/22 08:00 08:00 11:20 Temp 36.8 37.5 Pulse 71 Resp 16 B/P (MAP) 114/65 (81) Pulse Ox 94 95 O2 Delivery Room Air Room Air 03/01/22 00:00 Intake Total 1290 ml Output Total 0 ml Balance 1290 ml Weight (Pounds): 150 Weight (Ounces): 9.0 Weight (Calculated Kilograms): 68.851871 Side: left Device Insertion Site: without hematoma Swelling: without swelling Drainage: No Bruising: mild bruising Constitutional: AAO x 3, well-developed, well-nourished Respiratory: No accessory muscle use, No respiratory distress; chest expansion is symmetric, chest is bilaterally symmetric, lungs clear to auscultation Cardiovascular: regular rate-rhythm; No JVD; S1 and S2 Gastrointestional: No tender; soft, audible bowel sounds Extremities: no lower extremity edema bilateral Neurologic/Psychiatric: other (moves all limbs equally) Skin: No rash on exposed areas, No ulcerations on exposed areas Results/Procedures: Labs Laboratory Tests 03/01/22 05:30: White Blood Count 7.7, Red Blood Count 4.47, Hemoglobin 14.2, Hematocrit 42, Mean Corpuscular Volume 94, Mean Corpuscular Hemoglobin 32, Mean Corpuscular Hemoglobin Concent 34, Red Cell Distribution Width 14.1, Platelet Count 158, Mean Platelet Volume 11.8, Sodium Level 139, Potassium Level 3.8, Chloride Level 106, Carbon Dioxide Level 24, Anion Gap 9, Blood Urea Nitrogen 12, Creatinine 0.77, Estimat Glomerular Filtration Rate 104, BUN/Creatinine Ratio 16, Glucose Level 101, Calcium Level 9.4, Corrected Calcium 9.6, Total Bilirubin 0.5, Aspartate Amino Transf (AST/SGOT) 24, Alanine Aminotransferase (ALT/SGPT) 26, Alkaline Phosphatase 66, Total Protein 6.1L, Albumin 3.8 Microbiology 02/28/22 MRSA Screen - Final, Complete MRSA not isolated A/P: Assessment: Syncope d/t long Sinus pauses seen on ILR transmission - S/P dual chamber PPM implant on 02-28-22 and removal of ILR Seizure disorder - (grand mal seizures) since age 5 (last episode in November 2015), managed by his neurologist Dr Muro H/o hyperthyroidism - managed by Dr Lu Plan: I had a long and detailed discussion with him regarding the procedure and after care Pacemaker interrogated and found to be functioning normally Continue current medication regimen Ceftin 500mg BID x 5 days Return to office on this Sunday for device implant site and ILR removal site dressing changes Instructions regarding activity restrictions reviewed with verbalized understanding F/U in 2 weeks or sooner if needed ADOLFO GAMBINO MD [facility] Mar 01, 2022 11:52
== END 2022-03-01 15:15 | disposition home or self-care (01) ==
LOC: CATH 11:00 → CSD 16:10 → CATH 03-01 15:15
PROVIDERS: ATTEND Internal Medicine Cardiovascular Disease
DX: I49.5 Sick sinus syndrome (principal); R55 Syncope and collapse
CPT/HCPCS: 33208; 33286; 71045; 80053 ×2; 80061; 85027 ×2; 85610; 85730; 87081; 93005 ×2; C1785; C1898 ×2; 36415

== ENCOUNTER → 2023-03-12 | Outpatient (CLI) | payer BC ==
[~2023-03-12] MED LIST changes: +CEFU500T63 PO; +GADOTERATE 0.5 MMOL/ML (CLARISCAN) 20 ML VIAL IV ONE; -HEParin (CATH LAB) 1,000 ML IV ONE; -LIDOCAINE 1% INJ 30 ML (XYLOCAINE) VIAL ONE; -NS IV 1000 ML 1,000 ML IV ONE; -NS IV 1000 ML 2,000 ML ONE; -ceFAZolin INJECTION 1,000 MG ONE; -ceFAZolin INJECTION 1,000 MG VIAL IV ONE
--- NOTE | 2023-03-12 13:40 | Diagnostic Imaging Report ---
INDICATION: Pre-MRI screening. Time of Exam: 1:29 PM Correlation is made with prior chest from 02/28/2022. Dual lead left subclavian cardiac pacemaker is in place. There is no evidence of an abandoned lead. Lungs are clear. No infiltrate, effusion or pneumothorax is identified. Heart size normal. IMPRESSION: No evidence of abandoned leads to preclude performance of an MRI. Dictated by: Dictated on workstation # [id number]
--- NOTE | 2023-03-12 15:00 | Diagnostic Imaging Report ---
PROCEDURE: MR imaging of the brain with and without contrast. TECHNIQUE: Multiplanar, multisequence MR imaging of the brain was performed with and without contrast. INDICATION: Syncope. COMPARISON: CT head without contrast of 08/19/2020. 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 No restricted water diffusion. No hemosiderin deposition or evidence of intracranial hemorrhage. Normal morphology including the major midline structures, sella, posterior fossa and cerebellopontine angle. Normal intracranial flow voids. No hydrocephalus or extra-axial fluid collections. The orbits are unremarkable. Paranasal sinuses and mastoids are clear. Normal bone marrow signal. IMPRESSION: 1. No acute intracranial MRI findings. No evidence of acute infarction or hemorrhage. 2. 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 No abnormal intracranial enhancement. Dictated by: Dictated on workstation # [id number]
== END ==
LOC: RAD 13:18
PROVIDERS: ATTEND Psychiatry & Neurology Neurology
DX: R55 Syncope and collapse (principal)
CPT/HCPCS: 70553; 71045